=== PATIENT | male | born 1985 | race Two or more races ===

== ENCOUNTER 2017-06-01 03:26 | Emergency (ER) | payer SELFPAY ==
[2017-06-01] MEDS ORDERED: IPRATROPIUM/ALBUTEROL 0.5-2.5 MG/3 ML AMPUL NEB ONE (07:33)
[2017-06-01] MEDS ORDERED: ALBUTEROL SULFATE 0.083% NEB 2.5 MG/3 ML AMPUL NEB ONE (07:33)
[2017-06-01] MEDS ORDERED: PREDNISONE 20 MG TABLET PO ONE (07:33)
--- NOTE | 2017-06-01 07:56 | RADIOLOGY REPORT (SQ) ---
EXAM DESCRIPTION: CHEST PA/LAT COMPLETED DATE/TIME: 06/01/2017 7:40 am REASON FOR STUDY: sob COMPARISON: 06/27/2016. EXAM PARAMETERS: NUMBER OF VIEWS: two views TECHNIQUE: Digital Frontal and Lateral radiographic views of the chest acquired. RADIATION DOSE: NA LIMITATIONS: none FINDINGS: LUNGS AND PLEURA: No opacities, masses or pneumothorax. No pleural effusion. MEDIASTINUM AND HILAR STRUCTURES: No masses or contour abnormalities. HEART AND VASCULAR STRUCTURES: Heart normal size. No evidence for failure. BONES: No acute findings. HARDWARE: None in the chest. OTHER: No other significant finding. IMPRESSION: NO SIGNIFICANT RADIOGRAPHIC FINDING IN THE CHEST. TECHNICAL DOCUMENTATION: JOB ID: [id number] [employer]- All Rights Reserved
[2017-06-01] MEDS ORDERED: ALBUTEROL SULFATE HFA (90 MCG/PUFF) 8 GM MDI (1 MDI/ER DISP) IH ONE (09:27)
--- NOTE | 2017-06-01 09:27 | ER Document Report ---
ED General - General Chief Complaint: Sore Throat Stated Complaint: SORE THROAT Time Seen by Provider: 06/01/17 07:20 TRAVEL OUTSIDE OF THE [place] IN LAST 30 DAYS: No - HPI Patient complains to provider of: Sore throat difficulty in breathing Notes: Patient coming in for evaluation of shortness of breath and sore throat states ongoing for the last 24 hours. Denies any fevers chills nausea vomiting difficulty in swallowing denies any recent antibiotics patient states multiple family members are sick at home. Patient upon my evaluation is resting comfortably. - Related Data Allergies/Adverse Reactions: No Known Allergies Allergy (Unverified 06/26/16 03:06) Past Medical History - Social History Smoking Status: Unknown if Ever Smoked Family History: Reviewed & Not Pertinent Patient has suicidal ideation: No Renal/ Medical History: Denies: Hx Peritoneal Dialysis Review of Systems - Review of Systems Constitutional: No symptoms reported EENT: Throat pain Cardiovascular: No symptoms reported Respiratory: Short of breath Gastrointestinal: No symptoms reported Genitourinary: No symptoms reported Male Genitourinary: No symptoms reported Musculoskeletal: No symptoms reported Skin: No symptoms reported Hematologic/Lymphatic: No symptoms reported Neurological/Psychological: No symptoms reported -: Yes All other systems reviewed and negative Physical Exam - Vital signs Vitals: Temp Pulse Resp BP Pulse Ox 97.8 F 64 18 125/68 95 06/01/17 03:34 06/01/17 03:34 06/01/17 03:34 06/01/17 03:34 06/01/17 03:34 Interpretation: Normal - General General appearance: Appears well, Alert - HEENT Head: Normocephalic, Atraumatic Eyes: Normal Pupils: PERRL - Respiratory Respiratory status: No respiratory distress Chest status: Nontender Breath sounds: Wheezing Chest palpation: Normal - Cardiovascular Rhythm: Regular Heart sounds: Normal auscultation Murmur: No - Abdominal Inspection: Normal Distension: No distension Bowel sounds: Normal Tenderness: Nontender Organomegaly: No organomegaly - Back Back: Normal, Nontender - Extremities General upper extremity: Normal inspection, Nontender, Normal color, Normal ROM , Normal temperature General lower extremity: Normal inspection, Nontender, Normal color, Normal ROM , Normal temperature, Normal weight bearing. No: Lorie's sign - Neurological Neuro grossly intact: Yes Cognition: Normal Orientation: AAOx4 Sundance Coma Scale Eye Opening: Spontaneous Sundance Coma Scale Verbal: Oriented Smith Coma Scale Motor: Obeys Commands Sundance Coma Scale Total: 15 Speech: Normal Motor strength normal: LUE, RUE, LLE, RLE Sensory: Normal - Psychological Associated symptoms: Normal affect, Normal mood - Skin Skin Temperature: Warm Skin Moisture: Dry Skin Color: Normal Course - Re-evaluation Re-evalutation: 06/01/17 13:59 Patient's wheezing improved with administration of bronchodilators. Patient will be given steroids Z-Ethan bronchodilators for home. Patient states understanding strep throat was negative. - Vital Signs Vital signs: Temp Pulse Resp BP Pulse Ox 97.6 F 55 L 16 113/71 93 06/01/17 09:40 06/01/17 09:40 06/01/17 09:40 06/01/17 09:40 06/01/17 09:40 Discharge - Discharge Clinical Impression: Bronchitis Disposition: ADMITTED INPATIENT Instructions: Bronchitis With Bronchospasm (Wheezing) ([facility]) Additional Instructions: Take medication as prescribed. Please use the inhaler that we gave you here in the ER 2 puffs every 4 hours for the next 5 days. Return to the ER symptoms worsen. Prescriptions: Azithromycin [Zithromax 250 mg Tablet] 250 mg PO ASDIR PRN #6 tablet PRN Reason: Prednisone [Deltasone 20 mg Tablet] 3 tab PO DAILY 5 Days
[2017-06-01 10:13] VITALS: BP 113/71
== END 2017-06-01 09:54 | disposition home or self-care (01) ==
LOC: ER 03:26
DX: J40 Bronchitis, not specified as acute or chronic (principal); J02.9 Acute pharyngitis, unspecified; R06.02 Shortness of breath; R06.2 Wheezing
CPT/HCPCS: 94640 ×2; 99283; 87070; 87880; 71020; J7512; J3490; J7620

== ENCOUNTER 2018-07-16 20:59 | Inpatient (IN) | payer SELFPAY ==
[2018-07-16] MEDS ORDERED: METHYLPREDNISOLONE INJ 125 MG/2 ML SDV IV ONE (21:17)
[2018-07-16] MEDS ORDERED: IPRATROPIUM/ALBUTEROL 0.5-2.5 MG/3 ML AMPUL NEB ONE ×2 (21:17→21:31)
--- NOTE | 2018-07-16 21:33 | ER Document Report ---
ED General - General Chief Complaint: Breathing Difficulty Stated Complaint: DIFFICULTY BREATHING Time Seen by Provider: 07/16/18 21:30 Notes: The patient reports that for the past 2 days he has had progressive worsening cough of breath throughout the day today. The patient denies having an albuterol inhaler available to him at home. He denies smoking. He states that his shortness of breath is worsened by any form of exertion. He states he is feeling some improvement on nebulizers here in the emergency department. He denies ever having to be hospitalized in the past for his asthma. He does not have a general doctor. He denies any chest pain, fever or constitutional symptoms. History is otherwise somewhat limited secondary to the acuity of this patient's presentation. The history and physical exam was obtained by the provider using Upper Sorbian. A formal hospital quarter lining smoother was offered to the patient and any family at the bedside at the beginning of the encounter and was declined. TRAVEL OUTSIDE OF THE [place] IN LAST 30 DAYS: No - Related Data Allergies/Adverse Reactions: No Known Allergies Allergy (Unverified 06/26/16 03:06) Past Medical History - General Information source: Patient - Social History Smoking Status: Never Smoker Frequency of alcohol use: None Drug Abuse: None Family History: Reviewed & Not Pertinent Renal/ Medical History: Denies: Hx Peritoneal Dialysis Review of Systems - Review of Systems Notes: Constitutional: Negative for fever. HENT: Negative for sore throat. Eyes: Negative for visual changes. Cardiovascular: Negative for chest pain. Respiratory: Positive for cough and shortness of breath Gastrointestinal: Negative for abdominal pain, vomiting or diarrhea. Genitourinary: Negative for dysuria. Musculoskeletal: Negative for back pain. Skin: Negative for rash. Neurological: Negative for headaches, weakness or numbness. 10 point ROS negative except as marked above and in HPI. Physical Exam - Vital signs Vitals: Temp Pulse Resp BP Pulse Ox 97.8 F 83 26 H 112/68 94 07/16/18 21:05 07/16/18 21:05 07/16/18 21:05 07/16/18 21:05 07/16/18 21:05 Interpretation: Tachypneic Notes: PHYSICAL EXAMINATION: GENERAL: Appears in moderate to severe respiratory distress. HEAD: Atraumatic, normocephalic. EYES: Pupils equal round and reactive to light, extraocular movements intact, sclera anicteric, conjunctiva are normal. ENT: nares patent, oropharynx clear without exudates. Moderately dry mucous membranes. NECK: Normal range of motion, supple without lymphadenopathy LUNGS: Moderate to severe respiratory distress, breathing approximately 35 times per minute and initial assessment. Coarse expiratory wheezing in all lung giang. Globally diminished air movement throughout. Intercostal retractions present. HEART: Regular tachycardia without murmurs ABDOMEN: Soft, nontender, normoactive bowel sounds. No guarding, no rebound. No masses appreciated. EXTREMITIES: Normal range of motion, no pitting or edema. No cyanosis. NEUROLOGICAL: No focal neurological deficits. Moves all extremities spontaneously and on command. PSYCH: Normal mood, normal affect. SKIN: Warm, Dry, normal turgor, no rashes or lesions noted. Course - Re-evaluation Re-evalutation: 07/16/18 21:32 Patient presents in moderate to severe respiratory distress, breathing approximately 35 times per minute, intercostal retractions. He has diminished air movement in all lung giang with coarse expiratory wheezing throughout. He is also noted to be tachycardic likely secondary to his underlying respiratory distress. Clinical scenario is most consistent with a moderate to severe asthma exacerbation. Patient has been started on continuous nebulizers, IV magnesium, IV steroids have been administered. A chest x-ray and basic labs will be obtained. Patient has not yet mandate BiPAP therapy or intubation. He will require frequent and regular reassessments to ensure that he is not deteriorating from a respiratory standpoint and that he would not require positive pressure ventilation. He is currently in guarded condition 07/16/18 22:26 Patient's work of breathing has improved although he continues to be mildly tachypneic into the low 20s. He has diffuse expiratory wheezing that is ongoing in all lung giang. Will continue to give additional 10 mg of albuterol nebulizers at this point. Chest x-ray is clear. The patient does not begin to clinically improve he will likely require hospitalization. Will continue to reassess at regular intervals. 07/16/18 23:30 Patient continues to have coarse wheezing all lung giang remains moderately tachypneic despite almost 2 hours of continuous nebulizers. He has agreed to hospitalization at this point which I believe is necessary. He also remains with oxygen dependence. I discussed with Dr. Mckee who has requested a set of cardiac markers prior to admission acceptance. 07/17/18 00:43 Troponin is normal. Patient is now accepted to the hospital. - Vital Signs Vital signs: Temp Pulse Resp BP Pulse Ox 97.8 F 83 19 130/58 H 96 07/16/18 21:05 07/16/18 21:05 07/17/18 00:01 07/17/18 00:01 07/17/18 00:01 - Laboratory Result Diagrams: 07/16/18 21:32 07/16/18 21:32 Laboratory results interpreted by me: 07/16/18 07/16/18 21:32 21:32 WBC 12.6 H Eosinophils % 11.3 H Absolute Eosinophils 1.4 H BUN 22 H - Diagnostic Test Radiology reviewed: Image reviewed, Reports reviewed Radiology results interpreted by me: 07/17/18 00:43 Chest x-ray: No acute intracranial pneumothorax - EKG Interpretation by Me Additional EKG results interpreted by me: 07/17/18 00:[address] elevations or depressions. QTC 405. Rate 85. Critical Care Note - Critical Care Note Total time excluding time spent on procedures (mins): 38 Comments: Critical care time spent obtaining history from patient or surrogate, discussions with consultants, development of treatment plan with patient or surrogate, evaluation of patient's response to treatment, examination of patient , ordering and performing treatments and interventions, ordering and review of laboratory studies, re-evaluation of patient's condition, ordering and review of radiographic studies and review of old charts Discharge - Discharge Clinical Impression: Respiratory distress Asthma exacerbation Qualifiers: Asthma severity: severe Asthma persistence: unspecified Qualified Code(s): J45.901 - Unspecified asthma with (acute) exacerbation Condition: Fair Disposition: ADMITTED INPATIENT Admitting Provider: Hospitalist Unit Admitted: Telemetry
[2018-07-16] MEDS: ALBUTEROL SULFATE 0.083% NEB 2.5 MG/3 ML AMPUL NEB SCH ×2 (21:38→22:45)
[2018-07-16] MEDS: MAGNESIUM SULFATE/D5W 1 GM/100 ML RTUPB IV SCH ×2 (21:42→22:13)
--- NOTE | 2018-07-16 21:51 | RADIOLOGY REPORT (SQ) ---
XR CHEST 1 VIEW HISTORY: Shortness of breath. COMPARISON: None. FINDINGS/IMPRESSION: Normal cardiomediastinal contours. Lungs are clear. No pleural effusion or pneumothorax is seen. No acute osseous findings.
[2018-07-16 21:53] LABS: ABSOLUTE BASOPHILS # (AUTO) 0.1 10^3/uL (0.0-0.2); ABSOLUTE EOSINOPHILS # (AUTO) 1.4 10^3/uL (0.0-0.6); ABSOLUTE LYMPHOCYTES (AUTO) 2.4 10^3/uL (0.5-4.7); ABSOLUTE MONOCYTES (AUTO) 0.6 10^3/uL (0.1-1.4); BASOPHILS % (AUTO) 0.7 % (0-2); EOSINOPHILS % (AUTO) 11.3 % (0-6); HEMATOCRIT 44.5 % (37.9-51.0); HEMOGLOBIN 15.1 g/dL (13.5-17.0); LYMPHOCYTES % (AUTO) 18.9 % (13-45); MEAN CORPUSCULAR HEMOGLOBIN 30.9 pg (27.0-33.4); MEAN CORPUSCULAR VOLUME 91 fl (80-97); MONOCYTES % (AUTO) 5.1 % (3-13); PLATELET COUNT 227 10^3/uL (150-450); RED BLOOD COUNT 4.89 10^6/uL (4.35-5.55); RED CELL DISTRIBUTION WIDTH 13.2 % (11.5-14.0); TOTAL CELLS COUNTED % (AUTO) 100 %; WHITE BLOOD COUNT 12.6 10^3/uL (4.0-10.5)
--- NOTE | 2018-07-16 21:55 | EKG REPORT ---
SEVERITY:- NORMAL ECG - SINUS RHYTHM ST ELEV, PROBABLE NORMAL EARLY REPOL PATTERN : Confirmed by: Pratik Barros MD 16-Jul-2018 21:54:16
[2018-07-16 22:07] LABS: ANION GAP 14 (5-19); BLOOD UREA NITROGEN 22 mg/dL (7-20); CALCIUM 9.8 mg/dL (8.4-10.2); CARBON DIOXIDE 23 mmol/L (22-30); CHLORIDE 107 mmol/L (98-107); GLUCOSE 94 mg/dL (75-110); POTASSIUM 4.3 mmol/L (3.6-5.0); SODIUM 144.2 mmol/L (137-145)
[2018-07-16] MEDS ORDERED: RINGERS SOLUTION,LACTATED 1,000 ML IV ONE (22:25)
[2018-07-16] MEDS ORDERED: ALBUTEROL SULFATE 0.083% NEB 2.5 MG/3 ML AMPUL NEB ONE (22:25)
[2018-07-17] MEDS ORDERED: CHLORPHENIRAMINE MALEATE 4 MG TABLET PO ONE (00:41)
[2018-07-17] MEDS ORDERED: ACETAMINOPHEN 325 MG TABLET PO PRN (00:41)
[2018-07-17] MEDS ORDERED: IPRATROPIUM/ALBUTEROL 0.5-2.5 MG/3 ML AMPUL NEB PRN (00:41)
[2018-07-17] MEDS ORDERED: GUAIFENESIN SYRP 200 MG/10 ML UDC PO PRN (00:41)
[2018-07-17] MEDS ORDERED: FLUTICASONE NASAL SPRAY 50 MCG/SPRY 120 SPRAY/16 GM NASL ONE (01:00)
[2018-07-17] MEDS ORDERED: FLUTICASONE NASAL SPRAY 50 MCG/SPRY 120 SPRAY/16 GM ONE (01:33)
[2018-07-17] MEDS ORDERED: CHLORPHENIRAMINE MALEATE 4 MG TABLET ONE (01:33)
[2018-07-17] MEDS ORDERED: IPRATROPIUM/ALBUTEROL 0.5-2.5 MG/3 ML AMPUL NEB SCH (02:00)
[2018-07-17] MEDS ORDERED: CHLORPHENIRAMINE MALEATE 4 MG TABLET PO SCH (06:00)
[2018-07-17] MEDS ORDERED: METHYLPREDNISOLONE INJ 125 MG/2 ML SDV IV SCH (06:00)
[2018-07-17] MEDS: HEPARIN SOD (PORCINE) 5,000 UNIT/ML 1 ML SYRINGE SUBCUT SCH ×3 (06:03→22:21)
[2018-07-17] MEDS: LANSOPRAZOLE 30 MG TAB.RAP.DR PO SCH ×2 (06:04→17:17)
[2018-07-17] MEDS ORDERED: LEVALBUTEROL HCL NEB 1.25 MG/3 ML AMPUL NEB PRN (06:51)
--- NOTE | 2018-07-17 06:58 | PDOC H&P ---
History of Present Illness Admission Date/PCP: 07/17/18 01:32 Patient complains of: Shortness of breath History of Present Illness: ANGELO RODRÍGUEZ is a 33 year old Hungarian-speaking male with past medical history of asthma presents with exacerbation over the last 48 hours. He confirms exposure to cooking smoke and fumes his known trigger. He also complains of rhinorrhea and GERD. In the emergency room is found to have severe hypoxia with wheeze requiring continuous albuterol nebulizer and Solu- Medrol. He is referred to the hospitalist for admission. Patient admits to running out of asthma medications. Past Medical History Pulmonary Medical History: Reports: Asthma, Bronchitis Social History Information Source: Patient Lives with: Family Smoking Status: Never Smoker Frequency of Alcohol Use: None Hx Recreational Drug Use: No Drugs: None Hx Prescription Drug Abuse: No - Advance Directive Resuscitation Status: Full Code Family History Family History: Arthritis Parental Family History Reviewed: Yes Children Family History Reviewed: Yes Sibling(s) Family History Reviewed.: Yes Medication/Allergy Home Medications: Acetaminophen [Tylenol 325 mg Tablet] 650 mg PO Q4HP PRN tablet 06/28/16 Albuterol Sulfate [Proair Hfa Inhalation Aerosol 8.5 gm Mdi] 1 puff IH Q4 PRN # 1 mdi 06/28/16 Benzonatate [Tessalon Perles 100 mg Capsule] 100 mg PO Q8HP PRN #20 capsule Prednisone [Deltasone 20 mg Tablet] 40 mg PO DAILY #7 tablet 06/28/16 Sulfamethoxazole/Trimethoprim [Bactrim Ds Tablet] 1 each PO BID #14 tablet 06/28 Azithromycin [Zithromax 250 mg Tablet] 250 mg PO ASDIR PRN #6 tablet 06/01/17 Prednisone [Deltasone 20 mg Tablet] 3 tab PO DAILY 5 Days tablet 06/01/17 Allergies/Adverse Reactions: No Known Allergies Allergy (Unverified 06/26/16 03:06) Review of Systems Constitutional: ABSENT: chills, fever(s), headache(s), weight gain, weight loss Eyes: ABSENT: visual disturbances Ears: ABSENT: hearing changes Cardiovascular: ABSENT: chest pain, dyspnea on exertion, edema, orthropnea, palpitations Respiratory: ABSENT: cough, hemoptysis Gastrointestinal: ABSENT: abdominal pain, constipation, diarrhea, hematemesis, hematochezia, nausea, vomiting Genitourinary: ABSENT: dysuria, hematuria Musculoskeletal: ABSENT: joint swelling Integumentary: ABSENT: rash, wounds Neurological: ABSENT: abnormal gait, abnormal speech, confusion, dizziness, focal weakness, syncope Psychiatric: ABSENT: anxiety, depression, homidical ideation, suicidal ideation Endocrine: ABSENT: cold intolerance, heat intolerance, polydipsia, polyuria Hematologic/Lymphatic: ABSENT: easy bleeding, easy bruising Physical Exam Vital Signs: Temp Pulse Resp BP Pulse Ox 97.9 F 118 H 20 118/65 96 07/17/18 03:51 07/17/18 03:51 07/17/18 03:51 07/17/18 03:51 07/17/18 04:50 Pulse Oximeter Continuous Start: 07/17/18 00: 41 Freq: RTQ4 Status: Active Document 07/17/18 04:50 CBR (Rec: 07/17/18 04:57 [email or web address] [id number]) Pulse Oximetry Assessment Oxygen Saturation (92-100) 96 Oxygen Flow Rate (L/min) 2 Oxygen Delivery Method Nasal Cannula Fraction of Inspired Oxygen (FIO2) 28 Equipment Usage Initial Set Up Continuous Pulse Oximeter 24 Hour Charge Charge Now Continuous SpO2 Machine # [id number] Intake & Output 07/15/18 07/16/18 07/17/18 11:59 11:59 11:59 Weight 58.4 kg General appearance: PRESENT: cooperative, mild distress. ABSENT: disheveled Head exam: PRESENT: atraumatic, normocephalic Eye exam: PRESENT: conjunctiva pink, EOMI, PERRLA. ABSENT: scleral icterus Ear exam: PRESENT: normal external ear exam Mouth exam: PRESENT: moist, tongue midline Neck exam: ABSENT: carotid bruit, JVD, lymphadenopathy, thyromegaly Respiratory exam: PRESENT: accessory muscle use, prolonged expiratory phas, retraction, wheezes, other - Paroxysms of cough with deep breathing Cardiovascular exam: PRESENT: +S1, +S2, tachycardia Pulses: PRESENT: normal dorsalis pedis pul Vascular exam: PRESENT: normal capillary refill GI/Abdominal exam: PRESENT: normal bowel sounds, soft. ABSENT: distended, guarding, mass, organolmegaly, rebound, tenderness Rectal exam: PRESENT: deferred Extremities exam: PRESENT: full ROM. ABSENT: calf tenderness, clubbing, pedal edema Neurological exam: PRESENT: alert, awake, oriented to person, oriented to place , oriented to time, oriented to situation, CN II-XII grossly intact. ABSENT: motor sensory deficit Psychiatric exam: PRESENT: appropriate affect, normal mood. ABSENT: homicidal ideation, suicidal ideation Skin exam: PRESENT: dry, intact, warm. ABSENT: cyanosis, rash Results Laboratory Results: 07/17/18 05:56 Troponin I < 0.012 Impressions: Chest X-Ray 07/16/18 21:17 FINDINGS/IMPRESSION: Normal cardiomediastinal contours. Lungs are clear. No pleural effusion or pneumothorax is seen. No acute osseous findings. Assessment & Plan - Diagnosis (1) Asthma exacerbation Qualifiers: Asthma severity: severe Asthma persistence: unspecified Qualified Code(s) : J45.901 - Unspecified asthma with (acute) exacerbation Is this a current diagnosis for this admission?: Yes Plan: Secondary to exposure to known trigger, telemetry, Xopenex, chlorpheniramine, Flonase, follow-up peak flow and education (2) Tachycardia Is this a current diagnosis for this admission?: Yes Plan: Secondary to albuterol and Solu-Medrol, changed to Xopenex and prednisone (3) Sinusitis Is this a current diagnosis for this admission?: Yes Plan: Trial Levaquin, chlorpheniramine (4) GERD (gastroesophageal reflux disease) Is this a current diagnosis for this admission?: Yes Plan: Trial Pepcid (5) Respiratory distress Is this a current diagnosis for this admission?: Yes Plan: Secondary to #1, - Time Time Spent: 50 to 70 Minutes - Inpatient Certification Medical Necessity: Need Close Monitoring Due to Risk of Patient Decompensation
[2018-07-17] MEDS ORDERED: LEVOFLOXACIN 750 MG/D5W RTU 750 MG/150 ML RTUPB IV ONE (08:00)
[2018-07-17] MEDS: LEVALBUTEROL HCL NEB 1.25 MG/3 ML AMPUL NEB SCH ×3 (08:12→19:51)
[2018-07-17] MEDS: DOXYCYCLINE HYCLATE 100 MG TABLET PO SCH ×2 (09:31→22:21)
[2018-07-17] MEDS: CHLORPHENIRAMINE MALEATE 4 MG TABLET PO SCH ×2 (09:31→17:17)
--- NOTE | 2018-07-17 10:12 | Progress Note ---
Provider Note Provider Note: Patient was admitted today for asthma exacerbation. Patient is currently saturation 95% on 2 L; slightly tachycardic. Patient reports significant improvement however still wheezing. No chest pain. Patient is currently on Solu-Medrol and scheduled labs. Will decrease Solu-Medrol dose.
[2018-07-17] MEDS: FLUTICASONE NASAL SPRAY 50 MCG/SPRY 120 SPRAY/16 GM NASL SCH ×2 (10:56→22:20)
[2018-07-17] MEDS: METHYLPREDNISOLONE INJ 125 MG/2 ML SDV IV SCH ×2 (13:13→22:21)
[2018-07-17] MEDS: IPRATROPIUM BROMIDE 0.02% NEB 0.5 MG/2.5 ML AMPUL NEB SCH ×2 (14:45→19:51)
[2018-07-18] MEDS: LEVALBUTEROL HCL NEB 1.25 MG/3 ML AMPUL NEB SCH ×3 (01:52→14:14)
[2018-07-18] MEDS: IPRATROPIUM BROMIDE 0.02% NEB 0.5 MG/2.5 ML AMPUL NEB SCH ×3 (01:52→14:14)
[2018-07-18] MEDS: CHLORPHENIRAMINE MALEATE 4 MG TABLET PO SCH ×2 (02:23→09:10)
[2018-07-18] MEDS: METHYLPREDNISOLONE INJ 125 MG/2 ML SDV IV SCH (05:58)
[2018-07-18] MEDS: LANSOPRAZOLE 30 MG TAB.RAP.DR PO SCH (05:58)
[2018-07-18] MEDS: HEPARIN SOD (PORCINE) 5,000 UNIT/ML 1 ML SYRINGE SUBCUT SCH (05:58)
[2018-07-18 06:38] LABS: ANION GAP 15 (5-19); BLOOD UREA NITROGEN 20 mg/dL (7-20); CALCIUM 9.3 mg/dL (8.4-10.2); CARBON DIOXIDE 21 mmol/L (22-30); CHLORIDE 108 mmol/L (98-107); GLUCOSE 146 mg/dL (75-110); POTASSIUM 4.2 mmol/L (3.6-5.0); SODIUM 143.6 mmol/L (137-145)
[2018-07-18 06:46] LABS: HEMATOCRIT 39.2 % (37.9-51.0); HEMOGLOBIN 13.1 g/dL (13.5-17.0); MEAN CORPUSCULAR HEMOGLOBIN 30.7 pg (27.0-33.4); MEAN CORPUSCULAR HGB CONC 33.4 g/dL (32.0-36.0); MEAN CORPUSCULAR VOLUME 92 fl (80-97); PLATELET COUNT 212 10^3/uL (150-450); RED BLOOD COUNT 4.27 10^6/uL (4.35-5.55); RED CELL DISTRIBUTION WIDTH 13.5 % (11.5-14.0); WHITE BLOOD COUNT 21.2 10^3/uL (4.0-10.5)
[2018-07-18 06:52] LABS: ABSOLUTE LYMPHOCYTES# (MANUAL) 0.8 10^3/uL (0.5-4.7); ABSOLUTE MONOCYTES # (MANUAL) 0.2 10^3/uL (0.1-1.4); ABSOLUTE NEUTROPHILS# (MANUAL) 20.1 10^3/uL (1.7-8.2); BASOPHILS % (MANUAL) 0 % (0-2); EOSINOPHILS % (MANUAL) 0 % (0-6); LYMPHOCYTES % (MANUAL) 4 % (13-45); MONOCYTES % (MANUAL) 1 % (3-13); SEGMENTED NEUTROPHILS % (MAN) 95 % (42-78); TOTAL CELLS COUNTED 100
[2018-07-18 06:53] LABS: PLATELET COMMENT ADEQUATE; RBC MORPHOLOGY COMMENT NORMO-CYTIC/CHROMIC
[2018-07-18] MEDS: DOXYCYCLINE HYCLATE 100 MG TABLET PO SCH (09:10)
[2018-07-18] MEDS: FLUTICASONE NASAL SPRAY 50 MCG/SPRY 120 SPRAY/16 GM NASL SCH (09:10)
[2018-07-18] MEDS ORDERED: LEVOFLOXACIN 750 MG/D5W RTU 750 MG/150 ML RTUPB IV SCH (10:00)
--- NOTE | 2018-07-18 11:58 | PDOC DISCHARGE SUMMARY ---
General - Admit/Disc Date/PCP Admission Date/Primary Care Provider: 07/17/18 01:32 Discharge Date: 07/18/18 - Discharge Diagnosis (1) Asthma exacerbation Is this a current diagnosis for this admission?: Yes (2) Respiratory distress Is this a current diagnosis for this admission?: Yes - Additional Information Resuscitation Status: Full Code Discharge Diet: As Tolerated Discharge Activity: Activity As Tolerated Prescriptions: Doxycycline Hyclate [Vibramycin 100 mg Tablet] 100 mg PO Q12 #14 tablet Prednisone 10 mg PO DAILY #20 tab.ds.pk Home Medications: Doxycycline Hyclate [Vibramycin 100 mg Tablet] 100 mg PO Q12 #14 tablet Prednisone 10 mg PO DAILY #20 tab.ds.pk 07/18/18 History of Present Illness Patient complains of: sob/wheezing History of Present Illness: ANGELO RODRÍGUEZ is a 33 year old Israeli-speaking male with past medical history of asthma presents with exacerbation over the last 48 hours. He confirms exposure to cooking smoke and fumes his known trigger. He also complains of rhinorrhea and GERD. In the emergency room is found to have severe hypoxia with wheeze requiring continuous albuterol nebulizer and Solu- Medrol. He is referred to the hospitalist for admission. Patient admits to running out of asthma medications. Hospital Course Hospital Course: Patient was admitted to medical floor for further management of asthma exacerbation; patient was continued on Solu-Medrol as well as empiric antibiotic. Patient has been gradually tapered off oxygen. Patient is doing much better. Patient wished to go home. Will discharge patient on prednisone taper Dosepak along with p.o. doxycycline. Patient has been advised to continue inhaler at home. Physical Exam Vital Signs: Temp Pulse Resp BP Pulse Ox 97.6 F 92 20 108/64 99 07/18/18 08:02 07/18/18 08:02 07/18/18 08:02 07/18/18 08:02 07/18/18 08:00 Pulse Oximeter Continuous Start: 07/17/18 00: 41 Freq: RTQ4 Status: Active Document 07/18/18 08:00 LDA (Rec: 07/18/18 08:42 LDA [id number]) Pulse Oximetry Assessment Oxygen Saturation (92-100) 99 Oxygen Flow Rate (L/min) 2 Oxygen Delivery Method Nasal Cannula Fraction of Inspired Oxygen (FIO2) 28 Equipment Usage Equipment in Use Continuous SpO2 Machine # [id number] Intake & Output 07/17/18 07/18/18 07/19/18 06:59 06:59 06:59 Intake Total 770 503 Balance 770 503 Weight 128 lb 11.999 oz 127 lb 13.89 oz General appearance: PRESENT: no acute distress, cooperative Head exam: PRESENT: atraumatic, normocephalic Eye exam: PRESENT: EOMI, PERRLA Mouth exam: PRESENT: moist Neck exam: ABSENT: carotid bruit, JVD, lymphadenopathy, thyromegaly Respiratory exam: PRESENT: wheezes Cardiovascular exam: PRESENT: RRR. ABSENT: diastolic murmur, rubs, systolic murmur GI/Abdominal exam: PRESENT: normal bowel sounds, soft. ABSENT: distended, guarding, mass, organolmegaly, rebound, tenderness Neurological exam: PRESENT: alert, awake, oriented to person, oriented to place , oriented to time, oriented to situation, CN II-XII grossly intact. ABSENT: motor sensory deficit Skin exam: PRESENT: dry, intact, warm. ABSENT: cyanosis, rash Results Laboratory Results: 07/18/18 03:58 07/18/18 03:58 07/18/18 07/18/18 03:58 03:58 WBC 21.2 H RBC 4.27 L Hgb 13.1 L Hct 39.2 MCV 92 MCH 30.7 MCHC 33.4 RDW 13.5 Plt Count 212 Seg Neutrophils % Not Reportable Lymphocytes % Not Reportable Monocytes % Not Reportable Eosinophils % Not Reportable Basophils % Not Reportable Absolute Neutrophils Not Reportable Absolute Lymphocytes Not Reportable Absolute Monocytes Not Reportable Absolute Eosinophils Not Reportable Absolute Basophils Not Reportable Sodium 143.6 Potassium 4.2 Chloride 108 H Carbon Dioxide 21 L Anion Gap 15 BUN 20 Creatinine 0.88 Est GFR ( Amer) > 60 Est GFR (Non-Af Amer) > 60 Glucose 146 H Calcium 9.3 07/17/18 05:56 Troponin I < 0.012 Impressions: Chest X-Ray 07/16/18 21:17 FINDINGS/IMPRESSION: Normal cardiomediastinal contours. Lungs are clear. No pleural effusion or pneumothorax is seen. No acute osseous findings. Qualifiers - * PATIENT BEING DISCHARGED WITH ANY OF THE FOLLOWING DIAGNOSIS: No Plan Time Spent: Less than 30 Minutes
[2018-07-18 14:44] VITALS: BP 112/58
== END 2018-07-18 16:02 | disposition home or self-care (01) | DRG 203 ==
LOC: ER 20:59 → EH 07-17 01:32 → 5 07-17 03:49
PROVIDERS: ADMIT Internal Medicine; ATTEND Internal Medicine
DX: J45.901 Unspecified asthma with (acute) exacerbation (principal); R09.02 Hypoxemia; R00.0 Tachycardia, unspecified; J32.9 Chronic sinusitis, unspecified; K21.9 Gastro-esophageal reflux disease without esophagitis; Z79.899 Other long term (current) drug therapy
CPT/HCPCS: 36415; 71045; 80048; 84484; 85025; 93005; 93010; 94640; 94762; 96361; 96365; 96375; 99291; J1644; J1956; J2930; J3475; J3490; J7120; J7620

== ENCOUNTER 2018-11-25 14:24 | Inpatient (IN) | payer OTHER ==
[2018-11-25] MEDS ORDERED: METHYLPREDNISOLONE INJ 125 MG/2 ML SDV IV ONE (17:07)
[2018-11-25] MEDS ORDERED: IPRATROPIUM/ALBUTEROL 0.5-2.5 MG/3 ML AMPUL NEB ONE ×2 (17:07→19:51)
--- NOTE | 2018-11-25 17:09 | ER Document Report ---
ED Medical Screen (RME) - General Chief Complaint: Cough Stated Complaint: COUGH Time Seen by Provider: 11/25/18 16:46 Mode of Arrival: Ambulatory Information source: Patient Notes: Patient presents with a one-week history of cough shortness of breath and back pain. Patient denies any fever. Patient does report headache pain. Patient does have a history of asthma which has required hospitalization in the past. Patient denies any history of PE although review of additional previous admission does demonstrate question of possible small PE. Patient does not take any anticoagulants. I have greeted and performed a rapid initial assessment of this patient. A comprehensive ED assessment and evaluation of the patient, analysis of test results and completion of the medical decision making process will be conducted by additional ED providers. TRAVEL OUTSIDE OF THE [place] IN LAST 30 DAYS: No - Related Data Allergies/Adverse Reactions: No Known Allergies Allergy (Verified 11/25/18 16:46) Past Medical History - Social History Chew tobacco use (# tins/day): No Frequency of alcohol use: None Drug Abuse: None Pulmonary Medical History: Reports: Hx Asthma, Hx Bronchitis Renal/ Medical History: Denies: Hx Peritoneal Dialysis Physical Exam - Vital signs Vitals: Temp Pulse Resp BP Pulse Ox 97.5 F 64 14 109/74 96 11/25/18 14:29 11/25/18 14:29 11/25/18 14:29 11/25/18 14:29 11/25/18 14:29 - Respiratory Chest status: Pain with cough, Pain with deep breathing Breath sounds: Nonproductive cough, Wheezing - Diffuse bilateral Course - Vital Signs Vital signs: Temp Pulse Resp BP Pulse Ox 97.5 F 64 14 109/74 96 11/25/18 14:29 11/25/18 14:29 11/25/18 14:29 11/25/18 14:29 11/25/18 14:29
--- NOTE | 2018-11-25 17:43 | ER Document Report ---
ED General - General Chief Complaint: Cough Stated Complaint: COUGH Time Seen by Provider: 11/25/18 16:46 Mode of Arrival: Ambulatory Notes: Patient is a 33-year-old male who presents to the emergency department with a chief complaint of a cough. He states his cough started 6 days ago. He denies any fevers. Denies any past medical history, but he was admitted in July for a asthma exacerbation and in 2015 for a possible pulmonary emboli. TRAVEL OUTSIDE OF THE [place] IN LAST 30 DAYS: No - Related Data Allergies/Adverse Reactions: No Known Allergies Allergy (Verified 11/25/18 16:46) Past Medical History - General Information source: Patient - Social History Smoking Status: Never Smoker Chew tobacco use (# tins/day): No Frequency of alcohol use: None Drug Abuse: None Family History: Arthritis Patient has suicidal ideation: No Patient has homicidal ideation: No Pulmonary Medical History: Reports: Hx Asthma, Hx Bronchitis Renal/ Medical History: Denies: Hx Peritoneal Dialysis Review of Systems - Review of Systems Notes: REVIEW OF SYSTEMS: CONSTITUTIONAL : Denies recent illness. Denies recent unintentional weight loss. Denies fever, chills, or sweats. EENT: See HPI CARDIOVASCULAR: Denies chest pain. RESPIRATORY: See HPI GASTROINTESTINAL: Denies nausea, vomiting, and diarrhea. Denies abdominal pain. Denies constipation. GENITOURINARY: Denies difficulty urinating, burning, blood in urine, urgency or frequency. MUSCULOSKELETAL: Denies neck and back pain. Denies joint pain or swelling. SKIN: Denies rash, itchiness, or lesions HEMATOLOGIC : Denies easy bruising or bleeding. LYMPHATIC: Denies swollen, painful, enlarged glands. NEUROLOGICAL: Denies no numbness or tingling denies weakness. Denies headache. Denies altered mental status. Denies alteration in speech. PSYCHIATRIC: Denies stress, anxiety, alteration in sleep patterns, or depression. All other systems reviewed and negative. Physical Exam - Vital signs Vitals: Temp Pulse Resp BP Pulse Ox 97.5 F 64 14 109/74 96 11/25/18 14:29 11/25/18 14:29 11/25/18 14:29 11/25/18 14:29 11/25/18 14:29 - Notes Notes: PHYSICAL EXAMINATION: GENERAL: Appears well, healthy, well-nourished, no acute distress. HEAD: Normocephalic, atraumatic. EYES: PERRL, conjunctiva normal, all extraocular movements intact, sclera nonicteric ENT: Moist mucous membranes. NECK: Supple, no noticeable swelling, redness, rash. Normal range of motion. LUNGS: Inspiratory and expiratory wheezes noted throughout. Regular rate and symmetrical chest expansion. 89% on room air. CARDIOVASCULAR: S1-S2, regular rate, regular rhythm. Radial pulses 2+, normal. ABDOMEN: Normoactive bowel sounds. Soft, nontender, no guarding, no rebound tenderness, and no masses palpated. EXTREMITIES: Normal strength and range of motion, no pitting or edema. No cyan osis. NEUROLOGICAL: Moves all extremities upon command. Strength 5/5 in all extremities. PSYCH: Normal mood, normal affect. SKIN: Warm, dry. No rash, lesions, ulcerations noted. Normal skin turgor. Course - Re-evaluation Re-evalutation: 11/25/18 18:47 Patient's hematology is unremarkable. His chemistries are normal. His d-dimer is 0.27, therefore there is no indication for a CT scan at this time. He is getting continuous nebulizer treatments and his lung sounds are still wheezy. He will continue nebulizer treatments. His chest x-ray is negative, therefore there is no pneumonia at this time. His strep test that was performed in triage is negative. 11/25/18 20:23 Patient's lungs are still wheezy and his oxygen saturation is 89% on room air. He is placed on 2 L nasal cannula and his oxygen saturation increased to 94%. 11/25/18 20:[address] Hodgson, the hospitalist. He will admit the patient to the hospitalist service to the medical floor. - Vital Signs Vital signs: Temp Pulse Resp BP Pulse Ox 97.5 F 64 14 109/74 96 11/25/18 14:29 11/25/18 14:29 11/25/18 14:29 11/25/18 14:29 11/25/18 20:44 - Laboratory Result Diagrams: 11/25/18 18:02 11/25/18 18:02 Laboratory results interpreted by me: 11/25/18 18:02 Eosinophils % 12.5 H Absolute Eosinophils 1.2 H - EKG Interpretation by Me Additional EKG results interpreted by me: 11/25/18 17:42 Sinus rhythm. Heart rate 63. SD 160; QRS 80; QT 400 and; QTC 410. Discharge - Discharge Clinical Impression: Cough Asthma exacerbation Qualifiers: Asthma severity: severe Asthma persistence: unspecified Qualified Code(s): J45.901 - Unspecified asthma with (acute) exacerbation Condition: Fair Disposition: ADMITTED INPATIENT Admitting Provider: Hospitalist Unit Admitted: Medical Floor
--- NOTE | 2018-11-25 17:49 | RADIOLOGY REPORT (SQ) ---
EXAM DESCRIPTION: CHEST 2 VIEWS COMPLETED DATE/TIME: 11/25/2018 5:40 pm REASON FOR STUDY: cough, back pain COMPARISON: 06/01/2017 EXAM PARAMETERS: NUMBER OF VIEWS: two views TECHNIQUE: Digital Frontal and Lateral radiographic views of the chest acquired. RADIATION DOSE: NA LIMITATIONS: none FINDINGS: LUNGS AND PLEURA: No opacities, masses or pneumothorax. No pleural effusion. MEDIASTINUM AND HILAR STRUCTURES: No masses or contour abnormalities. HEART AND VASCULAR STRUCTURES: Heart normal size. No evidence for failure. BONES: No acute findings. HARDWARE: None in the chest. OTHER: No other significant finding. IMPRESSION: NO ACUTE RADIOGRAPHIC FINDING IN THE CHEST. TECHNICAL DOCUMENTATION: JOB ID: [id number] [employer]- All Rights Reserved Reading location - IP/workstation name: [email or web address]
[2018-11-25] MEDS: ALBUTEROL SULFATE 0.083% NEB 2.5 MG/3 ML AMPUL NEB SCH ×2 (18:00→18:34)
[2018-11-25] MEDS ORDERED: ONDANSETRON 4 MG TAB.RAPDIS PO ONE (18:04)
[2018-11-25 18:21] LABS: ABSOLUTE BASOPHILS # (AUTO) 0.1 10^3/uL (0.0-0.2); ABSOLUTE EOSINOPHILS # (AUTO) 1.2 10^3/uL (0.0-0.6); ABSOLUTE MONOCYTES (AUTO) 0.5 10^3/uL (0.1-1.4); ABSOLUTE NEUT (AUTO) 6.1 10^3/uL (1.7-8.2); BASOPHILS % (AUTO) 0.7 % (0-2); EOSINOPHILS % (AUTO) 12.5 % (0-6); HEMATOCRIT 45.6 % (37.9-51.0); HEMOGLOBIN 15.4 g/dL (13.5-17.0); MEAN CORPUSCULAR HEMOGLOBIN 31.1 pg (27.0-33.4); MEAN CORPUSCULAR HGB CONC 33.8 g/dL (32.0-36.0); MEAN CORPUSCULAR VOLUME 92 fl (80-97); PLATELET COUNT 229 10^3/uL (150-450); RED BLOOD COUNT 4.96 10^6/uL (4.35-5.55); SEGMENTED NEUTROPHILS % (AUTO) 61.8 % (42-78); TOTAL CELLS COUNTED % (AUTO) 100 %; WHITE BLOOD COUNT 9.8 10^3/uL (4.0-10.5)
[2018-11-25 18:43] LABS: ALANINE AMINOTRANSFERASE 37 U/L (21-72); ALKALINE PHOSPHATASE 53 U/L (38-126); ANION GAP 11 (5-19); ASPARTATE AMINO TRANSFERASE 57 U/L (17-59); BILIRUBIN,DIRECT 0.4 mg/dL (0.0-0.4); BILIRUBIN,TOTAL 1.3 mg/dL (0.2-1.3); BLOOD UREA NITROGEN 18 mg/dL (7-20); CALCIUM 9.7 mg/dL (8.4-10.2); CARBON DIOXIDE 25 mmol/L (22-30); CHLORIDE 106 mmol/L (98-107); GLUCOSE 80 mg/dL (75-110); POTASSIUM 4.7 mmol/L (3.6-5.0); SODIUM 141.9 mmol/L (137-145); TOTAL PROTEIN 7.7 g/dL (6.3-8.2)
[2018-11-25] MEDS: MAGNESIUM SULFATE/D5W 1 GM/100 ML RTUPB IV SCH ×2 (20:00→20:41)
[2018-11-25] MEDS ORDERED: ONDANSETRON HCL INJ/PF 4 MG/2 ML SDV IV PRN (20:33)
[2018-11-25] MEDS ORDERED: ONDANSETRON 4 MG TAB.RAPDIS PO PRN (20:33)
[2018-11-25] MEDS ORDERED: MAG HYDROX/AL HYDROX/SIMETH SUSP 30 ML UDCUP PO PRN (20:33)
[2018-11-25] MEDS ORDERED: MAGNESIUM HYDROXIDE SUSP 30 ML UDCUP PO PRN (20:33)
[2018-11-25] MEDS ORDERED: ACETAMINOPHEN 325 MG TABLET PO PRN (20:39)
[2018-11-25] MEDS ORDERED: ACETAMINOPHEN 650 MG SUPP.RECT PR PRN (20:39)
[2018-11-25] MEDS ORDERED: NALBUPHINE HCL INJ 10 MG/1 ML AMPULE IV PRN ×2 (21:12→22:00)
[2018-11-25] MEDS: GUAIFENESIN/D-METHORPHAN (200-20 MG) SYRUP 10 ML PO SCH ×2 (21:35→21:36)
[2018-11-25] MEDS: BUDESONIDE NEB 0.5 MG/2 ML AMPUL NEB SCH (22:09)
[2018-11-25] MEDS: ENOXAPARIN SODIUM INJ 40 MG/0.4 ML DISP.SYRIN SUBCUT SCH (22:10)
[2018-11-25] MEDS: FAMOTIDINE 20 MG TABLET PO SCH (22:10)
[2018-11-25] MEDS: IBUPROFEN 800 MG TABLET PO SCH (22:10)
--- NOTE | 2018-11-25 23:08 | PDOC H&P ---
History of Present Illness Admission Date/PCP: 11/25/2018 Patient complains of: Dyspnea History of Present Illness: ANGELO URENA is a 33 year old male who presented to the emergency room with a one-week history of progressively worsening dyspnea with wheezing accompanied by a nonproductive cough, generalized backache and a generalized headache. Patient indicates that his dyspnea became severe on the day of admission thus causing him to present to the emergency room. He admits similar symptoms on at least one prior occasion resulting in hospitalization and he has not identified any aggravating or ameliorating factors for his dyspnea. In the emergency room he was found to have significant wheezing on exam and hypoxia by O2 sat monitor. A d-dimer was noted to be negative. His overall condition improved with multiple nebulizer treatments and 1 dose of Solu-Medrol IV. He was found to remain hypoxic with an O2 sat in the 80s without oxygen support. He was given O2 via nasal cannula at 2 L/min and this improved his oxygen saturation to greater than 93%. Because of his requirement for oxygen to maintain an adequate O2 sat he is admitted to the hospital for further tr eatment. Past Medical History Cardiac Medical History: Reports: Pulmonary Embolism - History of a "possible small pulmonary embolism" found in prior records Denies: Coronary Artery Disease, Hypertension Pulmonary Medical History: Reports: Asthma, Bronchitis Denies: Intubation, Tuberculosis EENT Medical History: Reports: None Neurological Medical History: Denies: Hemorrhagic CVA, Ischemic CVA, Seizures Endocrine Medical History: Denies: Diabetes Mellitus Type 1, Diabetes Mellitus Type 2, Obesity Malignancy Medical History: Reports: None GI Medical History: Reports: Gastroesophageal Reflux Disease Denies: Cirrhosis, Hepatitis, Peptic Ulcer Disease Musculoskeltal Medical History: Denies: Arthritis, Gout Skin Medical History: Denies: Eczema, Psoriasis Psychiatric Medical History: Denies: Alcohol Dependency, Substance Abuse, Tobacco Dependency Traumatic Medical History: Reports: None Hematology: Denies: Anemia, Bleeding Tendencies Infectious Medical History: Reports: None Past Surgical History Past Surgical History: Reports: None Social History Information Source: Patient Lives with: Family Smoking Status: Never Smoker Frequency of Alcohol Use: None Hx Recreational Drug Use: No Drugs: None Hx Prescription Drug Abuse: No - Advance Directive Resuscitation Status: Full Code Surrogate healthcare decision maker:: None acknowledged Family History Family History: Arthritis Parental Family History Reviewed: Yes Children Family History Reviewed: No Sibling(s) Family History Reviewed.: Yes Medication/Allergy Home Medications: No Home Medications 11/25/18 Allergies/Adverse Reactions: No Known Allergies Allergy (Verified 11/25/18 16:46) Review of Systems Constitutional: PRESENT: as per HPI, headache(s). ABSENT: chills, fever(s) Eyes: ABSENT: visual disturbances, other - Ocular pain Ears: ABSENT: hearing changes, other - Ear pain Nose, Mouth, and Throat: ABSENT: mouth pain, sore throat Cardiovascular: PRESENT: dyspnea on exertion. ABSENT: chest pain, orthropnea, palpitations Respiratory: PRESENT: cough - Nonproductive, dyspnea. ABSENT: hemoptysis, sputum Gastrointestinal: ABSENT: abdominal pain, constipation, diarrhea, nausea, vomiting Genitourinary: ABSENT: dysuria, hematuria Musculoskeletal: PRESENT: as per HPI, back pain. ABSENT: joint swelling Integumentary: ABSENT: pruritus, rash Neurological: ABSENT: confusion, convulsions, memory loss Psychiatric: ABSENT: anxiety, depression Endocrine: ABSENT: cold intolerance, heat intolerance Hematologic/Lymphatic: ABSENT: easy bleeding, easy bruising Physical Exam Vital Signs: Temp Pulse Resp BP Pulse Ox 97.5 F 64 14 109/74 96 11/25/18 14:29 11/25/18 14:29 11/25/18 14:29 11/25/18 14:29 11/25/18 14:29 Intake & Output 11/23/18 11/24/18 11/25/18 23:59 23:59 23:59 Intake Total 100 Balance 100 Weight 61.4 kg General appearance: PRESENT: cooperative, mild distress - Mild respiratory distress with wheezing, well-developed, well-nourished Head exam: PRESENT: atraumatic, normocephalic Eye exam: PRESENT: conjunctiva pink, EOMI. ABSENT: scleral icterus Ear exam: PRESENT: normal external ear exam. ABSENT: bleeding, drainage Mouth exam: PRESENT: dry mucosa, neck supple Neck exam: ABSENT: JVD, thyromegaly, tracheal deviation Respiratory exam: PRESENT: prolonged expiratory phas, symmetrical, wheezes. ABSENT: accessory muscle use, retraction Cardiovascular exam: PRESENT: RRR. ABSENT: clicks, gallop, rubs Pulses: PRESENT: normal radial pulses, normal dorsalis pedis pul Vascular exam: PRESENT: normal capillary refill. ABSENT: pallor GI/Abdominal exam: PRESENT: normal bowel sounds, soft Rectal exam: PRESENT: deferred Extremities exam: ABSENT: joint swelling, pedal edema, tenderness Musculoskeletal exam: PRESENT: ambulatory, full ROM, normal inspection Neurological exam: PRESENT: alert, oriented to person, oriented to place, oriented to time, oriented to situation, CN II-XII grossly intact. ABSENT: motor sensory deficit Psychiatric exam: PRESENT: appropriate affect, normal mood Skin exam: PRESENT: dry, intact, warm. ABSENT: jaundice, rash, urticaria Results Laboratory Results: 11/25/18 18:02 11/25/18 18:02 11/25/18 11/25/18 18:02 18:02 WBC 9.8 RBC 4.96 Hgb 15.4 Hct 45.6 MCV 92 MCH 31.1 MCHC 33.8 RDW 13.0 Plt Count 229 Seg Neutrophils % 61.8 Lymphocytes % 20.0 Monocytes % 5.0 Eosinophils % 12.5 H Basophils % 0.7 Absolute Neutrophils 6.1 Absolute Lymphocytes 2.0 Absolute Monocytes 0.5 Absolute Eosinophils 1.2 H Absolute Basophils 0.1 Sodium 141.9 Potassium 4.7 Chloride 106 Carbon Dioxide 25 Anion Gap 11 BUN 18 Creatinine 0.72 Est GFR ( Amer) > 60 Est GFR (Non-Af Amer) > 60 Glucose 80 Calcium 9.7 Magnesium 2.0 Total Bilirubin 1.3 AST 57 ALT 37 Alkaline Phosphatase 53 Total Protein 7.7 Albumin 5.0 11/25/18 18:02 Troponin I < 0.012 Impressions: Chest X-Ray 11/25/18 17:07 IMPRESSION: NO ACUTE RADIOGRAPHIC FINDING IN THE CHEST. Assessment & Plan - Diagnosis (1) Acute respiratory failure with hypoxia Is this a current diagnosis for this admission?: Yes Plan: Patient will be continued on oxygen support as long as required to maintain a normal level of oxygen saturation. He is currently using O2 via nasal cannula at 2 L/min. (2) Acute exacerbation of extrinsic asthma Is this a current diagnosis for this admission?: Yes Plan: Patient be treated with an aggressive pulmonary toilet utilizing Xopenex, Atrovent, Pulmicort, Mucomyst and albuterol. He will receive IV steroids in the form of Solu-Medrol 40 mg every 6 hours. He will be maintained on O2 support with oxygen via nasal cannula to maintain his oxygen saturation at greater than 93%. (3) Cough headache Is this a current diagnosis for this admission?: Yes Plan: Patient has a generalized headache secondary to his persistent coughing. His cough will be treated utilizing Mucomyst and guaifenesin with dextromethorphan. His headache will be treated with Nubain 10 mg IV every 3 hours as needed. (4) Backache Qualifiers: Back pain location: thoracic back pain Chronicity: acute Back pain laterality: bilateral Qualified Code(s): M54.6 - Pain in thoracic spine Is this a current diagnosis for this admission?: Yes Plan: Patient's backache is most likely secondary to his respiratory problems of cough and dyspnea. His back pain is generalized thoracic pain bilaterally and it will be treated with nonsteroidal anti-inflammatory drugs utilizing ibuprofen 800 mg p.o. 3 times daily as well as new being 10 mg IV every 3 hours as needed. - Time Time Spent: 30 to 50 Minutes Critical Time spent with patient: Less than 15 minutes Medications reviewed and adjusted accordingly: Yes Anticipated discharge: Home Within: within 72 hours - Inpatient Certification Based on my medical assessment, after consideration of the patient's comorbidities, presenting symptoms, or acuity I expect that the services needed warrant INPATIENT care.: Yes I certify that my determination is in accordance with my understanding of Medicare's requirements for reasonable and necessary INPATIENT services [42 CFR 412.3e].: Yes Medical Necessity: Need Close Monitoring Due to Risk of Patient Decompensation, Need for Nebulizer Therapy and Monitoring of Response, Need for Pain Control, Risk of Complication if Not Cared For in Hospital
[2018-11-25] MEDS: ACETYLCYSTEINE 20% SOLN 800 MG/4 ML VIAL.NEB NEB SCH (23:30)
[2018-11-26] MEDS: GUAIFENESIN/D-METHORPHAN (200-20 MG) SYRUP 10 ML PO SCH ×5 (00:50→22:59)
[2018-11-26] MEDS: NORMAL SALINE 1000 ML 1,000 ML IV PRN ×2 (01:04→05:11)
[2018-11-26] MEDS: IPRATROPIUM BROMIDE 0.02% NEB 0.5 MG/2.5 ML AMPUL NEB SCH ×4 (02:41→23:40)
[2018-11-26] MEDS: LEVALBUTEROL HCL NEB 1.25 MG/3 ML AMPUL NEB SCH ×4 (02:41→23:40)
[2018-11-26] MEDS: IBUPROFEN 800 MG TABLET PO SCH ×3 (06:16→22:40)
[2018-11-26] MEDS: METHYLPREDNISOLONE INJ 40 MG/1 ML SDV IV SCH ×3 (06:18→17:47)
[2018-11-26 07:36] LABS: ABSOLUTE MONOCYTES (AUTO) 0.1 10^3/uL (0.1-1.4); ABSOLUTE NEUT (AUTO) 6.3 10^3/uL (1.7-8.2); BASOPHILS % (AUTO) 0.3 % (0-2); HEMATOCRIT 40.7 % (37.9-51.0); HEMOGLOBIN 14.1 g/dL (13.5-17.0); LYMPHOCYTES % (AUTO) 13.3 % (13-45); MEAN CORPUSCULAR HEMOGLOBIN 31.3 pg (27.0-33.4); MEAN CORPUSCULAR HGB CONC 34.6 g/dL (32.0-36.0); MEAN CORPUSCULAR VOLUME 91 fl (80-97); MONOCYTES % (AUTO) 0.8 % (3-13); PLATELET COUNT 227 10^3/uL (150-450); RED CELL DISTRIBUTION WIDTH 12.7 % (11.5-14.0); SEGMENTED NEUTROPHILS % (AUTO) 85.6 % (42-78); TOTAL CELLS COUNTED % (AUTO) 100 %; WHITE BLOOD COUNT 7.4 10^3/uL (4.0-10.5)
[2018-11-26 07:56] LABS: ANION GAP 9 (5-19); BLOOD UREA NITROGEN 14 mg/dL (7-20); CALCIUM 9.3 mg/dL (8.4-10.2); CARBON DIOXIDE 22 mmol/L (22-30); CHLORIDE 109 mmol/L (98-107); GLUCOSE 135 mg/dL (75-110); POTASSIUM 4.5 mmol/L (3.6-5.0); SODIUM 140.3 mmol/L (137-145)
[2018-11-26] MEDS: BUDESONIDE NEB 0.5 MG/2 ML AMPUL NEB SCH ×2 (08:49→19:33)
[2018-11-26] MEDS: ACETYLCYSTEINE 20% SOLN 800 MG/4 ML VIAL.NEB NEB SCH ×2 (08:49→19:33)
--- NOTE | 2018-11-26 09:20 | EKG REPORT ---
SEVERITY:- NORMAL ECG - SINUS RHYTHM : Confirmed by: Pratik Barros MD 26-Nov-2018 09:20:00
[2018-11-26] MEDS: DOCUSATE SODIUM 100 MG CAPSULE PO SCH ×2 (09:52→17:47)
[2018-11-26] MEDS: FAMOTIDINE 20 MG TABLET PO SCH ×2 (09:52→22:41)
[2018-11-26] MEDS: ENOXAPARIN SODIUM INJ 40 MG/0.4 ML DISP.SYRIN SUBCUT SCH (09:52)
[2018-11-26] MEDS: ALBUTEROL SULFATE 0.083% NEB 2.5 MG/3 ML AMPUL NEB PRN (19:33)
--- NOTE | 2018-11-27 04:12 | PROGRESS NOTE E ---
Progress Note NAME: ANGELO URENA : 1985 AGE: 33Y DATE: 11/26/2018 ROOM: 208 SUBJECTIVE: The patient is a 33-year-old male who has a past medical history of asthma, history of GI bleed. The patient admitted with shortness of breath, asthma exacerbation. He is feeling better, but is still requiring oxygen, has wheezing and coughing. When he was admitted, saturation was in 80s. OBJECTIVE: GENERAL: The patient lying in bed comfortable, not in distress. VITAL SIGNS: Blood pressure is 103/55, temperature 98.1, heart rate is 83, saturation is 97% on 2 L. HEENT: Head: Normocephalic, atraumatic. Pupils round, reactive to light and accommodation bilaterally. Extraocular movements intact. Ears: Tympanic membranes intact bilaterally. No discharge from the ears. No discharge from the nose. NECK: Supple. No increased JVD. No thyromegaly. No lymphadenopathy. CARDIOVASCULAR: Normal S1, S2. Regular rate and rhythm. No murmur. No gallop. RESPIRATORY: Bilateral wheezing, crackles. ABDOMEN: Soft, nontender. MUSCULOSKELETAL: No edema. NEUROLOGIC: Awake, alert. SKIN: No rash. LABORATORY: White blood count 7.4, hemoglobin 14. Sodium 140, potassium 4.5, creatinine 0.7. ASSESSMENT: 1. ACUTE HYPOXIC RESPIRATORY FAILURE SECONDARY TO ASTHMA EXACERBATION. 2. ASTHMA EXACERBATION. 3. COUGH. 4. HEADACHE. 5. BACK PAIN. PLAN: 1. Continue antibiotics. 2. Continue with methylprednisolone. 3. Continue inhaler. DISPOSITION: Home in 1 or 2 days. DICTATING PHYSICIAN: ROCÍO CAO M.D. [id number] PHY#: [id number] ID: [id number] JOB#: [id number] ACCT: [id number] cc: > MTDD
[2018-11-27] MEDS: GUAIFENESIN/D-METHORPHAN (200-20 MG) SYRUP 10 ML PO SCH ×4 (05:21→23:05)
[2018-11-27] MEDS: IBUPROFEN 800 MG TABLET PO SCH ×3 (05:21→21:09)
[2018-11-27 06:40] LABS: ABSOLUTE LYMPHOCYTES (AUTO) 1.4 10^3/uL (0.5-4.7); ABSOLUTE MONOCYTES (AUTO) 0.9 10^3/uL (0.1-1.4); ABSOLUTE NEUT (AUTO) 14.5 10^3/uL (1.7-8.2); BASOPHILS % (AUTO) 0.1 % (0-2); EOSINOPHILS % (AUTO) 0.1 % (0-6); HEMATOCRIT 38.7 % (37.9-51.0); LYMPHOCYTES % (AUTO) 8.2 % (13-45); MEAN CORPUSCULAR HEMOGLOBIN 31.1 pg (27.0-33.4); MEAN CORPUSCULAR HGB CONC 33.8 g/dL (32.0-36.0); MEAN CORPUSCULAR VOLUME 92 fl (80-97); MONOCYTES % (AUTO) 5.5 % (3-13); PLATELET COUNT 222 10^3/uL (150-450); RED CELL DISTRIBUTION WIDTH 13.2 % (11.5-14.0); SEGMENTED NEUTROPHILS % (AUTO) 86.1 % (42-78); TOTAL CELLS COUNTED % (AUTO) 100 %
[2018-11-27 06:48] LABS: WHITE BLOOD COUNT 16.8 10^3/uL (4.0-10.5)
[2018-11-27 07:13] LABS: ALBUMIN 3.7 g/dL (3.5-5.0); ANION GAP 7 (5-19); BLOOD UREA NITROGEN 20 mg/dL (7-20); CALCIUM 9.1 mg/dL (8.4-10.2); CARBON DIOXIDE 23 mmol/L (22-30); CHLORIDE 111 mmol/L (98-107); GLUCOSE 136 mg/dL (75-110); PHOSPHORUS 3.8 mg/dL (2.5-4.5); POTASSIUM 4.4 mmol/L (3.6-5.0); SODIUM 141.2 mmol/L (137-145)
[2018-11-27] MEDS: BUDESONIDE NEB 0.5 MG/2 ML AMPUL NEB SCH ×2 (09:08→20:34)
[2018-11-27] MEDS: ACETYLCYSTEINE 20% SOLN 800 MG/4 ML VIAL.NEB NEB SCH ×2 (09:08→20:34)
[2018-11-27] MEDS: IPRATROPIUM BROMIDE 0.02% NEB 0.5 MG/2.5 ML AMPUL NEB SCH ×3 (09:08→23:59)
[2018-11-27] MEDS: LEVALBUTEROL HCL NEB 1.25 MG/3 ML AMPUL NEB SCH ×3 (09:08→23:59)
[2018-11-27] MEDS: DOCUSATE SODIUM 100 MG CAPSULE PO SCH ×2 (10:53→18:34)
[2018-11-27] MEDS: ENOXAPARIN SODIUM INJ 40 MG/0.4 ML DISP.SYRIN SUBCUT SCH (10:53)
[2018-11-27] MEDS: FAMOTIDINE 20 MG TABLET PO SCH ×2 (10:53→21:09)
[2018-11-27] MEDS: METHYLPREDNISOLONE INJ 40 MG/1 ML SDV IV SCH ×2 (15:03→21:10)
--- NOTE | 2018-11-27 15:42 | PROGRESS NOTE E ---
Progress Note NAME: ANGELO URENA : 1985 AGE: 33Y DATE: 11/27/2018 ROOM: 208 SUBJECTIVE: The patient is at present a 33-year-old male who had a past medical history of asthma, history of GI bleeding. The patient admitted to shortness of breath and asthma exacerbation. He is improving gradually; however, he is still wheezing and has a cough. OBJECTIVE: GENERAL: Patient lying in bed, comfortable, not in distress. VITAL SIGNS: Blood pressure is 102/52, heart rate 55, temperature 97.9, respirations 18, saturation 95% on room air. HEENT: Normocephalic, atraumatic. Pupils equal, round, reactive to light and accommodation bilaterally. Extraocular movements intact. Ears: Tympanic membranes intact bilaterally. No discharge from the ears. No discharge from the nose. NECK: Supple. No JVD. No thyromegaly. No lymphadenopathy. CARDIOVASCULAR: Normal S1, S2. Regular rate and rhythm. No murmur, no gallop. RESPIRATORY: Lungs: Bilateral wheezing, crackles. ABDOMEN: Soft, nontender. MUSCULOSKELETAL: No edema. NEUROLOGIC: Awake, alert. SKIN: No rash. LABORATORY DATA: White blood count 16.8, hemoglobin 13. Sodium 141, potassium 4.4, creatinine 0.6. ASSESSMENT: 1. ACUTE HYPOXIC RESPIRATORY FAILURE, SECONDARY TO ASTHMA EXACERBATION. 2. ASTHMA EXACERBATION. 3. COUGH. 4. HEADACHE. 5. BACK PAIN. PLAN: 1. Will start him on Levaquin 750 mg p.o. daily. 2. Continue nebulizer. 3. Continue oxygen. 4. Continue Solu-Medrol. DISPOSITION: Probably discharge him home tomorrow morning if his condition is improved. DICTATING PHYSICIAN: ROCÍO CAO M.D. [id number] PHY#: [id number] ID: [id number] JOB#: [id number] ACCT: [id number] cc: >
[2018-11-27] MEDS: ALBUTEROL SULFATE 0.083% NEB 2.5 MG/3 ML AMPUL NEB PRN (20:34)
[2018-11-28] MEDS: GUAIFENESIN/D-METHORPHAN (200-20 MG) SYRUP 10 ML PO SCH (05:21)
[2018-11-28] MEDS: METHYLPREDNISOLONE INJ 40 MG/1 ML SDV IV SCH (05:22)
[2018-11-28] MEDS: IBUPROFEN 800 MG TABLET PO SCH (05:22)
[2018-11-28 06:28] LABS: ABSOLUTE LYMPHOCYTES (AUTO) 1.2 10^3/uL (0.5-4.7); ABSOLUTE MONOCYTES (AUTO) 0.3 10^3/uL (0.1-1.4); ABSOLUTE NEUT (AUTO) 8.2 10^3/uL (1.7-8.2); BASOPHILS % (AUTO) 0.5 % (0-2); HEMATOCRIT 40.1 % (37.9-51.0); HEMOGLOBIN 13.7 g/dL (13.5-17.0); LYMPHOCYTES % (AUTO) 12.2 % (13-45); MEAN CORPUSCULAR HEMOGLOBIN 31.4 pg (27.0-33.4); MEAN CORPUSCULAR HGB CONC 34.2 g/dL (32.0-36.0); MEAN CORPUSCULAR VOLUME 92 fl (80-97); MONOCYTES % (AUTO) 3.3 % (3-13); PLATELET COUNT 148 10^3/uL (150-450); RED BLOOD COUNT 4.38 10^6/uL (4.35-5.55); RED CELL DISTRIBUTION WIDTH 13.3 % (11.5-14.0); TOTAL CELLS COUNTED % (AUTO) 100 %; WHITE BLOOD COUNT 9.8 10^3/uL (4.0-10.5)
[2018-11-28 06:40] LABS: ANION GAP 10 (5-19); BLOOD UREA NITROGEN 16 mg/dL (7-20); CARBON DIOXIDE 24 mmol/L (22-30); CHLORIDE 107 mmol/L (98-107); GLUCOSE 129 mg/dL (75-110); POTASSIUM 4.2 mmol/L (3.6-5.0); SODIUM 140.5 mmol/L (137-145)
[2018-11-28] MEDS: BUDESONIDE NEB 0.5 MG/2 ML AMPUL NEB SCH (08:12)
[2018-11-28] MEDS: ACETYLCYSTEINE 20% SOLN 800 MG/4 ML VIAL.NEB NEB SCH (08:12)
[2018-11-28] MEDS: LEVALBUTEROL HCL NEB 1.25 MG/3 ML AMPUL NEB SCH (08:12)
[2018-11-28] MEDS: IPRATROPIUM BROMIDE 0.02% NEB 0.5 MG/2.5 ML AMPUL NEB SCH (08:12)
--- NOTE | 2018-11-28 08:41 | PDOC DISCHARGE SUMMARY ---
General - Admit/Disc Date/PCP Admission Date/Primary Care Provider: 11/25/18 20:36 Discharge Date: 11/28/18 - Discharge Diagnosis (1) Acute exacerbation of extrinsic asthma Is this a current diagnosis for this admission?: Yes Summary: 11/28/2018 this 33-year-old male with history of asthma admitted for shortness of breath and asthma exacerbation Xopenex nebulizations ipratropium nebulizations and IV Solu-Medrol no complications during the hospital stay. Pulse ox is 96% on room air today. On examination chest bilateral entry was good no wheezing at all. Patient agreed to go home today. I gave him a prescription for albuterol inhaler and cough medication strongly advised him to follow-up with primary care physician in 3-5 days. (2) Acute respiratory failure with hypoxia Is this a current diagnosis for this admission?: Yes Summary: 11/28/2018 at the time of admission patient was hypoxic and I was placed on oxygen 2 L nasal cannula today pulse ox is 96% on room air acute respiratory failure with hypoxia is resolved. (3) Cough headache Is this a current diagnosis for this admission?: Yes Summary: 11/28/2018 patient was admitted with generalized headache secondary to persistent coughing he got Mucomyst and guaifenesin with dextromethorphan ,he is going to go home on guaifenesin cough medication for a few days. Patient headache is resolved. - Additional Information Resuscitation Status: Full Code Discharge Diet: As Tolerated Discharge Activity: Activity As Tolerated Prescriptions: Albuterol Sulfate [Proair Respiclick] 90 mcg IH Q4HP PRN #3 inhaler PRN Reason: Guaifenesin/D-Methorphan Hb [Robitussin-Dm Syrup 10 ml Udcup] 10 ml PO Q6 #100 syrup Home Medications: Albuterol Sulfate [Proair Respiclick] 90 mcg IH Q4HP PRN #3 inhaler 11/28/18 Guaifenesin/D-Methorphan Hb [Robitussin-Dm Syrup 10 ml Udcup] 10 ml PO Q6 #100 syrup 11/28/18 History of Present Illness History of Present Illness: ANGELO URENA is a 33 year old male who presented to the emergency room with a one-week history of progressively worsening dyspnea with wheezing accompanied by a nonproductive cough, generalized backache and a generalized headache. Patient indicates that his dyspnea became severe on the day of admission thus causing him to present to the emergency room. He admits similar symptoms on at least one prior occasion resulting in hospitalization and he has not identified any aggravating or ameliorating factors for his dyspnea. In the emergency room he was found to have significant wheezing on exam and hypoxia by O2 sat monitor. A d-dimer was noted to be negative. His overall condition improved with multiple nebulizer treatments and 1 dose of Solu-Medrol IV. He was found to remain hypoxic with an O2 sat in the 80s without oxygen support. He was given O2 via nasal cannula at 2 L/min and this improved his oxygen saturation to greater than 93%. Because of his requirement for oxygen to maintain an adequate O2 sat he is admitted to the hospital for further treatment. Hospital Course Hospital Course: 11/28/2018 patient was admitted with complaints of shortness of breath and cou ghing on 11/26/2018 initially was hypoxic he was placed on scheduled nebulizations cough medication and IV Solu-Medrol symptoms are Completely resolved. Pulse ox is 96% room air today. Patient is asymptomatic. Chest was clear on examination. Is going to go home today. Cultures are negative. Physical Exam Vital Signs: Temp Pulse Resp BP Pulse Ox 98.1 F 70 15 101/47 L 96 11/28/18 04:31 11/28/18 04:31 11/28/18 04:31 11/28/18 04:31 11/28/18 04:31 Intake & Output 11/27/18 11/28/18 11/29/18 06:59 06:59 06:59 Intake Total 1540 600 Balance 1540 600 Weight 63.1 kg 62.4 kg General appearance: PRESENT: no acute distress Head exam: PRESENT: atraumatic Eye exam: PRESENT: PERRLA Mouth exam: PRESENT: moist Neck exam: ABSENT: carotid bruit, JVD, lymphadenopathy, thyromegaly Respiratory exam: PRESENT: clear to auscultation yanely. ABSENT: rales, rhonchi, wheezes Cardiovascular exam: PRESENT: RRR. ABSENT: diastolic murmur, rubs, systolic murmur Extremities exam: PRESENT: full ROM. ABSENT: calf tenderness, clubbing, pedal edema Neurological exam: PRESENT: alert, awake, oriented to person, oriented to place, oriented to time, oriented to situation, CN II-XII grossly intact. ABSENT: motor sensory deficit Psychiatric exam: PRESENT: appropriate affect, normal mood. ABSENT: homicidal ideation, suicidal ideation Results Laboratory Results: 11/28/18 05:54 11/28/18 05:54 11/28/18 11/28/18 05:54 05:54 WBC 9.8 RBC 4.38 Hgb 13.7 Hct 40.1 MCV 92 MCH 31.4 MCHC 34.2 RDW 13.3 Plt Count 148 L Seg Neutrophils % 84.0 H Lymphocytes % 12.2 L Monocytes % 3.3 Eosinophils % 0.0 Basophils % 0.5 Absolute Neutrophils 8.2 Absolute Lymphocytes 1.2 Absolute Monocytes 0.3 Absolute Eosinophils 0.0 Absolute Basophils 0.0 Sodium 140.5 Potassium 4.2 Chloride 107 Carbon Dioxide 24 Anion Gap 10 BUN 16 Creatinine 0.63 Est GFR ( Amer) > 60 Est GFR (Non-Af Amer) > 60 Glucose 129 H Calcium 9.0 Magnesium 1.7 11/25/18 15:23 Throat Throat Culture - Final NORMAL KETAN 11/25/18 18:02 Troponin I < 0.012 Impressions: Chest X-Ray 11/25/18 17:07 IMPRESSION: NO ACUTE RADIOGRAPHIC FINDING IN THE CHEST. Qualifiers - * PATIENT BEING DISCHARGED WITH ANY OF THE FOLLOWING DIAGNOSIS: No VTE patient discharged on overlapping Therapy?: Yes
[2018-11-28 09:50] VITALS: BP 124/64
[2018-11-28] MEDS ORDERED: LEVOFLOXACIN 750 MG TABLET PO SCH (10:00)
[2018-11-28] MEDS: DOCUSATE SODIUM 100 MG CAPSULE PO SCH (11:16)
[2018-11-28] MEDS: ENOXAPARIN SODIUM INJ 40 MG/0.4 ML DISP.SYRIN SUBCUT SCH (11:16)
[2018-11-28] MEDS: FAMOTIDINE 20 MG TABLET PO SCH (11:17)
[2018-11-28] MEDS ORDERED: METHYLPREDNISOLONE INJ 40 MG/1 ML SDV IV SCH (18:00)
== END 2018-11-28 12:02 | disposition home or self-care (01) | DRG 202 ==
LOC: ER 14:24 → EH 20:36 → 2N 11-26 00:02
PROVIDERS: ADMIT Emergency Medicine; ATTEND Emergency Medicine
PROC: 3E0F73Z Introduction of Anti-inflammatory into Respiratory Tract, Via Natural or Artificial Opening (ICD-10-PCS; principal; 2018-11-25)
DX: J45.901 Unspecified asthma with (acute) exacerbation (principal); J96.01 Acute respiratory failure with hypoxia; R05 Cough; M54.6 Pain in thoracic spine
CPT/HCPCS: 36415; 71046; 80048; 80053; 80069; 83735; 84484; 85025; 85379; 87070; 87880; 90471; 90686; 93005; 93010; 94640; 96365; 96375; 99285; G0008; J1650; J2920; J2930; J3475; J3490; J7030; J7620; S0119

== ENCOUNTER 2019-06-02 12:17 | Observation (INO) | payer OTHER ==
[2019-06-02] MEDS ORDERED: ALBUTEROL SULFATE 0.083% NEB 2.5 MG/3 ML AMPUL NEB ONE ×2 (13:06→14:25)
[2019-06-02] MEDS ORDERED: IPRATROPIUM/ALBUTEROL 0.5-2.5 MG/3 ML AMPUL NEB ONE ×2 (13:11)
[2019-06-02] MEDS ORDERED: METHYLPREDNISOLONE INJ 125 MG/2 ML SDV IV ONE (13:12)
[2019-06-02 13:44] LABS: ABSOLUTE BASOPHILS # (AUTO) 0.1 10^3/uL (0.0-0.2); ABSOLUTE EOSINOPHILS # (AUTO) 1.9 10^3/uL (0.0-0.6); ABSOLUTE LYMPHOCYTES (AUTO) 1.5 10^3/uL (0.5-4.7); ABSOLUTE MONOCYTES (AUTO) 0.4 10^3/uL (0.1-1.4); ABSOLUTE NEUT (AUTO) 5.3 10^3/uL (1.7-8.2); BASOPHILS % (AUTO) 1.1 % (0-2); EOSINOPHILS % (AUTO) 20.3 % (0-6); HEMATOCRIT 45.8 % (37.9-51.0); HEMOGLOBIN 15.5 g/dL (13.5-17.0); LYMPHOCYTES % (AUTO) 16.5 % (13-45); MEAN CORPUSCULAR HEMOGLOBIN 30.4 pg (27.0-33.4); MEAN CORPUSCULAR HGB CONC 33.8 g/dL (32.0-36.0); MEAN CORPUSCULAR VOLUME 90 fl (80-97); MONOCYTES % (AUTO) 4.7 % (3-13); PLATELET COUNT 242 10^3/uL (150-450); RED BLOOD COUNT 5.09 10^6/uL (4.35-5.55); SEGMENTED NEUTROPHILS % (AUTO) 57.4 % (42-78); TOTAL CELLS COUNTED % (AUTO) 100 %; WHITE BLOOD COUNT 9.3 10^3/uL (4.0-10.5)
--- NOTE | 2019-06-02 13:47 | EKG REPORT ---
SEVERITY:- BORDERLINE ECG - SINUS RHYTHM BORDERLINE R WAVE PROGRESSION, ANTERIOR LEADS : Confirmed by: Pratik Barros MD 02-Jun-2019 13:46:48
[2019-06-02 13:49] LABS: ALANINE AMINOTRANSFERASE 24 U/L (21-72); ALBUMIN 4.8 g/dL (3.5-5.0); ALKALINE PHOSPHATASE 60 U/L (38-126); ANION GAP 10 (5-19); ASPARTATE AMINO TRANSFERASE 28 U/L (17-59); BILIRUBIN,DIRECT 0.2 mg/dL (0.0-0.4); BILIRUBIN,TOTAL 1.5 mg/dL (0.2-1.3); BLOOD UREA NITROGEN 14 mg/dL (7-20); CARBON DIOXIDE 24 mmol/L (22-30); CHLORIDE 104 mmol/L (98-107); GLUCOSE 90 mg/dL (75-110); POTASSIUM 4.6 mmol/L (3.6-5.0); TOTAL PROTEIN 7.6 g/dL (6.3-8.2)
--- NOTE | 2019-06-02 14:06 | RADIOLOGY REPORT (SQ) ---
EXAM DESCRIPTION: CHEST SINGLE VIEW COMPLETED DATE/TIME: 06/02/2019 1:22 pm REASON FOR STUDY: sob COMPARISON: 03/13/2019 EXAM PARAMETERS: NUMBER OF VIEWS: One view. TECHNIQUE: Single frontal radiographic view of the chest acquired. RADIATION DOSE: NA LIMITATIONS: None. FINDINGS: LUNGS AND PLEURA: No opacities, masses or pneumothorax. No pleural effusion. MEDIASTINUM AND HILAR STRUCTURES: No masses. Contour normal. HEART AND VASCULAR STRUCTURES: Heart normal in size. Normal vasculature. BONES: No acute findings. HARDWARE: None in the chest. OTHER: No other significant finding. IMPRESSION: No acute abnormality of the lungs in frontal projection. TECHNICAL DOCUMENTATION: JOB ID: [id number] [employer]- All Rights Reserved Reading location - IP/workstation name: [email or web address]
--- NOTE | 2019-06-02 15:38 | ER Document Report ---
Entered by MARCIA WATKINS SCRIBE 06/02/19 [id number] Acting as scribe for:MENDEZ CUBA DO ED General - General Chief Complaint: Asthma Exacerbation Stated Complaint: DIFFICULTY BREATHING Time Seen by Provider: 06/02/19 13:08 Notes: Patient is a 34-year-old male presenting to the emergency department during an asthma attack. 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 states that he has been experiencing problems for 3 days now. states that he has an inhaler, he tried to use it but it does not work. states that he has been coughing up phlegm. patient denies having fever, vomiting, diarrhea, ever having intubation for an asthma episode related episode. Patient states that he has to come to the hospital approximately once a month to be treated for his asthma attacks, has had to be hospitalized for this frequently. Denies any hemoptysis. TRAVEL OUTSIDE OF THE [place] IN LAST 30 DAYS: No - Related Data Allergies/Adverse Reactions: No Known Allergies Allergy (Verified 06/02/19 12:21) Past Medical History - General Information source: Patient - Social History Smoking Status: Never Smoker Chew tobacco use (# tins/day): No Frequency of alcohol use: None Drug Abuse: None Family History: Arthritis Patient has suicidal ideation: No Patient has homicidal ideation: No - Past Medical History Cardiac Medical History: Reports: Hx Pulmonary Embolism - History of a "possible small pulmonary embolism" found in prior records Denies: Hx Coronary Artery Disease, Hx Hypertension Pulmonary Medical History: Reports: Hx Asthma, Hx Bronchitis Denies: Hx Intubation, Hx Tuberculosis Neurological Medical History: Denies: Hx Seizures Endocrine Medical History: Denies: Hx Diabetes Mellitus Type 1, Hx Diabetes Mellitus Type 2 Renal/ Medical History: Denies: Hx Peritoneal Dialysis GI Medical History: Reports: Hx Gastroesophageal Reflux Disease. Denies: Hx Cirrhosis, Hx Hepatitis Musculoskeletal Medical History: Denies Hx Arthritis, Denies Hx Gout Skin Medical History: Denies Hx Eczema, Denies Hx Psoriasis Infectious Medical History: Denies: Hx Hepatitis Review of Systems - Review of Systems Constitutional: See HPI. denies: Fever EENT: No symptoms reported Cardiovascular: No symptoms reported Respiratory: See HPI, Cough. denies: Hemoptysis Gastrointestinal: See HPI. denies: Diarrhea, Vomiting Genitourinary: No symptoms reported Male Genitourinary: No symptoms reported Musculoskeletal: No symptoms reported Skin: No symptoms reported Hematologic/Lymphatic: No symptoms reported Neurological/Psychological: No symptoms reported -: Yes All other systems reviewed and negative Physical Exam - Vital signs Vitals: Temp Pulse Resp BP Pulse Ox 98.1 F 94 24 H 135/79 H 92 06/02/19 12:22 06/02/19 12:22 06/02/19 12:22 06/02/19 12:22 06/02/19 12:22 Interpretation: Tachypneic - Notes Notes: PHYSICAL EXAM GENERAL: Alert, speaks in 3-4 word sentences, mild respiratory distress. HEAD: Normocephalic, atraumatic. EYES: Pupils equal, round, and reactive to light. Extraocular movements intact. ENT: Oral mucosa moist, tongue midline. NECK: Full range of motion. Supple. Trachea midline. LUNGS: Diffuse expiratory wheezing. Prolonged expiratory phase. Mild respiratory distress. No rales, or rhonchi. HEART: Regular rate and rhythm. No murmurs, gallops, or rubs. ABDOMEN: Soft, non-tender. Non-distended. Bowel sounds present in all 4 quadrants. No guarding, rigidity, or rebound. EXTREMITIES: Moves all 4 extremities spontaneously. No edema, radial and dorsalis pedis pulses 2/4 bilaterally. No cyanosis. NEUROLOGICAL: Alert and oriented x3. Normal speech. Biceps and patellar DTRs 2+ bilaterally. PSYCH: Normal affect, normal mood. SKIN: Warm, dry, normal turgor. No rashes or lesions noted. Course - Re-evaluation Re-evalutation: 06/02/19 15:36 Patient immediately started on breathing treatments and Solu-Medrol, placed on 2 L via nasal cannula which resolved his hypoxia of 92%, CBC unremarkable, CMP unremarkable, chest x-ray shows no acute process, EKG is nonischemic. Patient was given 2 DuoNeb's and 7.5 mg of albuterol nebulized with only mild improvement. Patient is currently sleeping but awakens easily. No alteration in mental status. Patient does still have significant wheezing. Discussed patient with Dr. Awad who agrees to admit the patient to his service on the medical floor. - Vital Signs Vital signs: Temp Pulse Resp BP Pulse Ox 98.5 F 94 20 113/75 96 06/02/19 14:00 06/02/19 12:22 06/02/19 14:01 06/02/19 14:00 06/02/19 14:01 - Laboratory Result Diagrams: 06/02/19 13:05 06/02/19 13:05 Laboratory results interpreted by me: 06/02/19 06/02/19 13:05 13:05 Eosinophils % 20.3 H Absolute Eosinophils 1.9 H Total Bilirubin 1.5 H - EKG Interpretation by Me Additional EKG results interpreted by me: 06/02/19 15:37 EKG shows sinus rhythm at a rate of 82, normal axis, normal intervals, no ST segment elevations or depressions, isolated T wave inversions in aVL per my interpretation. Critical Care Note - Critical Care Note Total time excluding time spent on procedures (mins): 40 Discharge - Discharge Clinical Impression: Acute exacerbation of extrinsic asthma Condition: Fair Disposition: ADMITTED INPATIENT Admitting Provider: Delmi (Hospitalist) Unit Admitted: Medical Floor I personally performed the services described in the documentation, reviewed and edited the documentation which was dictated to the scribe in my presence, and it accurately records my words and actions.
--- NOTE | 2019-06-02 16:03 | PDOC H&P ---
History of Present Illness History of Present Illness: ANGELO URENA is a 34 yr old Bahamian-speakingmale with a PMH of asthma who presented with increasing SOB and wheezing. He says he has beenhaving progressive SOB, wheezing and minimally productive cough for the past 3 days. He denies fever or chills. Upon presentation, he was noted to have labored breathing, was tachypneic an diaphoretic and sats at 91%. On encounter, he has bilateral wheezing. He did say he got relief from the breathing treatments and IV steroids and that his SOB has improved. Past Medical History Cardiac Medical History: Reports: Pulmonary Embolism - History of a "possible small pulmonary embolism" found in prior records Denies: Coronary Artery Disease, Hypertension Pulmonary Medical History: Reports: Asthma, Bronchitis Denies: Intubation, Tuberculosis Neurological Medical History: Denies: Seizures Endocrine Medical History: Denies: Diabetes Mellitus Type 1, Diabetes Mellitus Type 2 GI Medical History: Reports: Gastroesophageal Reflux Disease Denies: Cirrhosis, Hepatitis Musculoskeltal Medical History: Denies: Arthritis, Gout Skin Medical History: Denies: Eczema, Psoriasis Hematology: Denies: Anemia, Bleeding Tendencies Social History Smoking Status: Never Smoker Frequency of Alcohol Use: None Hx Recreational Drug Use: Yes Drugs: None Hx Prescription Drug Abuse: No Family History Family History: Arthritis Parental Family History Reviewed: Yes - no premature CAD Children Family History Reviewed: No Sibling(s) Family History Reviewed.: No Medication/Allergy Allergies/Adverse Reactions: No Known Allergies Allergy (Verified 06/02/19 12:21) Physical Exam Vital Signs: Temp Pulse Resp BP Pulse Ox 98.5 F 94 20 113/75 96 06/02/19 14:00 06/02/19 12:22 06/02/19 14:01 06/02/19 14:00 06/02/19 14:01 Intake & Output 06/01/19 06/02/19 06/03/19 06:59 06:59 06:59 Weight 138 lb 3.677 oz General appearance: PRESENT: no acute distress, well-developed, well-nourished Head exam: PRESENT: atraumatic, normocephalic Eye exam: PRESENT: conjunctiva pink, EOMI, PERRLA. ABSENT: scleral icterus Ear exam: PRESENT: normal external ear exam Mouth exam: PRESENT: moist, tongue midline Neck exam: ABSENT: carotid bruit, JVD, lymphadenopathy, thyromegaly Respiratory exam: PRESENT: wheezes. ABSENT: rales, rhonchi Cardiovascular exam: PRESENT: RRR. ABSENT: diastolic murmur, rubs, systolic murmur Pulses: PRESENT: normal dorsalis pedis pul GI/Abdominal exam: PRESENT: normal bowel sounds, soft. ABSENT: distended, guarding, mass, organolmegaly, rebound, tenderness Rectal exam: PRESENT: deferred Extremities exam: PRESENT: full ROM. ABSENT: calf tenderness, clubbing, pedal edema Neurological exam: PRESENT: alert, awake, oriented to person, oriented to place, oriented to time, oriented to situation, CN II-XII grossly intact. ABSENT: motor sensory deficit Results Laboratory Results: 06/02/19 13:05 06/02/19 13:05 06/02/19 06/02/19 13:05 13:05 WBC 9.3 RBC 5.09 Hgb 15.5 Hct 45.8 MCV 90 MCH 30.4 MCHC 33.8 RDW 13.0 Plt Count 242 Seg Neutrophils % 57.4 Lymphocytes % 16.5 Monocytes % 4.7 Eosinophils % 20.3 H Basophils % 1.1 Absolute Neutrophils 5.3 Absolute Lymphocytes 1.5 Absolute Monocytes 0.4 Absolute Eosinophils 1.9 H Absolute Basophils 0.1 Sodium 138.4 Potassium 4.6 Chloride 104 Carbon Dioxide 24 Anion Gap 10 BUN 14 Creatinine 0.87 Est GFR ( Amer) > 60 Est GFR (Non-Af Amer) > 60 Glucose 90 Calcium 10.0 Total Bilirubin 1.5 H AST 28 ALT 24 Alkaline Phosphatase 60 Total Protein 7.6 Albumin 4.8 Impressions: Chest X-Ray 06/02/19 13:05 IMPRESSION: No acute abnormality of the lungs in frontal projection. Assessment and Plan - Diagnosis (1) Acute respiratory failure with hypoxia Is this a current diagnosis for this admission?: Yes Plan: Secondary to asthma exacerbation. Saturating well on nasal cannula. (2) Asthma exacerbation Qualifiers: Asthma severity: moderate Asthma persistence: unspecified Qualified Code(s): J45.901 - Unspecified asthma with (acute) exacerbation Is this a current diagnosis for this admission?: Yes Plan: Start scheduled breathing treatments. Solumdrol 40 mg IV q8h. - Time Time Spent with patient: 25-34 minutes
[2019-06-02] MEDS: NORMAL SALINE 1000 ML 1,000 ML IV PRN ×2 (16:08→17:56)
[2019-06-02] MEDS: IPRATROPIUM/ALBUTEROL 0.5-2.5 MG/3 ML AMPUL NEB SCH ×3 (16:22→23:34)
[2019-06-02] MEDS: METHYLPREDNISOLONE INJ 40 MG/1 ML SDV IV SCH (22:42)
[2019-06-02] MEDS: HEPARIN SOD (PORCINE) 5,000 UNIT/ML 1 ML VIAL SUBCUT SCH (22:43)
[2019-06-03] MEDS: IPRATROPIUM/ALBUTEROL 0.5-2.5 MG/3 ML AMPUL NEB SCH ×6 (03:51→23:55)
[2019-06-03] MEDS: METHYLPREDNISOLONE INJ 40 MG/1 ML SDV IV SCH ×3 (06:28→21:17)
--- NOTE | 2019-06-03 11:56 | PDOC PROGRESS REPORT ---
Subjective Progress Note for:: 06/03/19 Subjective:: This is a 34 yr old Hebrew-speaking male with a PMH of asthma who presented with increasing SOB and wheezing. He was admitted for severe asthma exacerbation. No acute event overnight. This morning, he appears more comfortable. Communication is done through the [employer] system. He says his shortness of breath has improved. It is definitely not at his baseline yet he still has significant bilateral wheezing. He has had prior episodes of severe asthma exacerbation and apparently is only using albuterol inhalers at home. Reason For Visit: ASTHMA EXCERBATION Physical Exam Vital Signs: Temp Pulse Resp BP Pulse Ox 97.9 F 98 18 116/65 99 06/03/19 08:00 06/03/19 08:00 06/03/19 08:00 06/03/19 08:00 06/03/19 08:00 Intake & Output 06/02/19 06/03/19 06/04/19 06:59 06:59 06:59 Intake Total 1000 1000 Balance 1000 1000 Weight 140 lb 6.951 oz General appearance: PRESENT: no acute distress, well-developed, well-nourished Head exam: PRESENT: atraumatic, normocephalic Eye exam: PRESENT: conjunctiva pink, EOMI, PERRLA. ABSENT: scleral icterus Ear exam: PRESENT: normal external ear exam Mouth exam: PRESENT: moist, tongue midline Neck exam: ABSENT: carotid bruit, JVD, lymphadenopathy, thyromegaly Respiratory exam: PRESENT: wheezes. ABSENT: rales, rhonchi Cardiovascular exam: PRESENT: RRR. ABSENT: diastolic murmur, rubs, systolic murmur Pulses: PRESENT: normal dorsalis pedis pul Vascular exam: PRESENT: normal capillary refill GI/Abdominal exam: PRESENT: normal bowel sounds, soft. ABSENT: distended, guarding, mass, organolmegaly, rebound, tenderness Rectal exam: PRESENT: deferred Extremities exam: PRESENT: full ROM. ABSENT: calf tenderness, clubbing, pedal edema Neurological exam: PRESENT: alert, awake, oriented to person, oriented to place, oriented to time, oriented to situation, CN II-XII grossly intact. ABSENT: motor sensory deficit Results Laboratory Results: 06/02/19 13:05 06/02/19 13:05 07/19/19 07/19/19 13:05 13:05 WBC 9.3 RBC 5.09 Hgb 15.5 Hct 45.8 MCV 90 MCH 30.4 MCHC 33.8 RDW 13.0 Plt Count 242 Seg Neutrophils % 57.4 Lymphocytes % 16.5 Monocytes % 4.7 Eosinophils % 20.3 H Basophils % 1.1 Absolute Neutrophils 5.3 Absolute Lymphocytes 1.5 Absolute Monocytes 0.4 Absolute Eosinophils 1.9 H Absolute Basophils 0.1 Sodium 138.4 Potassium 4.6 Chloride 104 Carbon Dioxide 24 Anion Gap 10 BUN 14 Creatinine 0.87 Est GFR ( Amer) > 60 Est GFR (Non-Af Amer) > 60 Glucose 90 Calcium 10.0 Total Bilirubin 1.5 H AST 28 ALT 24 Alkaline Phosphatase 60 Total Protein 7.6 Albumin 4.8 Impressions: Chest X-Ray 06/02/19 13:05 IMPRESSION: No acute abnormality of the lungs in frontal projection. Assessment and Plan - Diagnosis (1) Acute respiratory failure with hypoxia Is this a current diagnosis for this admission?: Yes Plan: Secondary to asthma exacerbation. Saturating well on nasal cannula. (2) Asthma exacerbation Qualifiers: Asthma severity: moderate Asthma persistence: unspecified Qualified Code(s): J45.901 - Unspecified asthma with (acute) exacerbation Is this a current diagnosis for this admission?: Yes Plan: Slightly improved. He continues to have bilateral wheezes. Continue IV steroids and scheduled breathing treatments for now. - Time Time Spent with patient: 15-24 minutes
[2019-06-03] MEDS: HEPARIN SOD (PORCINE) 5,000 UNIT/ML 1 ML VIAL SUBCUT SCH ×2 (12:37→21:17)
[2019-06-03] MEDS ORDERED: DILTIAZEM HCL 60 MG TABLET ONE (21:33)
[2019-06-03] MEDS ORDERED: DILTIAZEM HCL 60 MG TABLET PO ONE (22:15)
[2019-06-04] MEDS: IPRATROPIUM/ALBUTEROL 0.5-2.5 MG/3 ML AMPUL NEB SCH ×2 (04:01→08:34)
[2019-06-04] MEDS: METHYLPREDNISOLONE INJ 40 MG/1 ML SDV IV SCH ×3 (05:40→21:09)
[2019-06-04] MEDS: HEPARIN SOD (PORCINE) 5,000 UNIT/ML 1 ML VIAL SUBCUT SCH ×2 (10:09→21:08)
--- NOTE | 2019-06-04 13:52 | PDOC PROGRESS REPORT ---
Subjective Progress Note for:: 06/04/19 Subjective:: This is a 34 yr old Yakut-speaking male with a PMH of asthma who presented with increasing SOB and wheezing. He was admitted for severe asthma exacerbation. 06/03: This morning, he appears more comfortable. Communication is done through the [employer] system. He says his shortness of breath has improved. It is definitely not at his baseline yet he still has significant bilateral wheezing. He has had prior episodes of severe asthma exacerbation and apparently is only using albuterol inhalers at home. 06/04: No acute event overnight. He says his shortness of breath continued to improve but he is not at his baseline yet. He continues to have bilateral wheezing albeit slightly improved from yesterday. He is tachycardic in the 120s. Reason For Visit: ASTHMA EXCERBATION Physical Exam Vital Signs: Temp Pulse Resp BP Pulse Ox 97.8 F 128 H 20 130/69 H 97 06/04/19 12:00 06/04/19 12:00 06/04/19 12:00 06/04/19 12:00 06/04/19 12:00 Intake & Output 06/03/19 06/04/19 06/05/19 06:59 06:59 06:59 Intake Total 1000 5782 450 Balance 1000 5782 450 Weight 140 lb 6.951 oz 140 lb 14.006 oz General appearance: PRESENT: no acute distress, well-developed, well-nourished Head exam: PRESENT: atraumatic, normocephalic Eye exam: PRESENT: conjunctiva pink, EOMI, PERRLA. ABSENT: scleral icterus Ear exam: PRESENT: normal external ear exam Mouth exam: PRESENT: moist, tongue midline Neck exam: ABSENT: carotid bruit, JVD, lymphadenopathy, thyromegaly Respiratory exam: PRESENT: rhonchi, wheezes. ABSENT: rales Cardiovascular exam: PRESENT: RRR. ABSENT: diastolic murmur, rubs, systolic murmur Pulses: PRESENT: normal dorsalis pedis pul GI/Abdominal exam: PRESENT: normal bowel sounds, soft. ABSENT: distended, guarding, mass, organolmegaly, rebound, tenderness Rectal exam: PRESENT: deferred Extremities exam: PRESENT: full ROM. ABSENT: calf tenderness, clubbing, pedal edema Neurological exam: PRESENT: alert, awake, oriented to person, oriented to place, oriented to time, oriented to situation, CN II-XII grossly intact. ABSENT: motor sensory deficit Results Laboratory Results: 06/02/19 13:05 06/02/19 13:05 06/04/19 08:32 TSH 0.35 L Impressions: Chest X-Ray 06/02/19 13:05 IMPRESSION: No acute abnormality of the lungs in frontal projection. Assessment and Plan - Diagnosis (1) Acute respiratory failure with hypoxia Is this a current diagnosis for this admission?: Yes Plan: Secondary to asthma exacerbation. Saturating well on nasal cannula. (2) Asthma exacerbation Qualifiers: Asthma severity: moderate Asthma persistence: unspecified Qualified Code(s): J45.901 - Unspecified asthma with (acute) exacerbation Is this a current diagnosis for this admission?: Yes Plan: 06/03: Slightly improved. He continues to have bilateral wheezes. Continue IV steroids and scheduled breathing treatments for now. 06/04: Continue IV steroids. Switch DuoNeb to albuterol.
[2019-06-04] MEDS: ALBUTEROL SULFATE 0.083% NEB 2.5 MG/3 ML AMPUL NEB SCH ×2 (13:55→20:45)
[2019-06-04 14:34] LABS: FREE T3 3.21 pg/mL (2.77-5.27); FREE T4 (FREE THYROXINE) 1.06 ng/dL (0.78-2.19)
[2019-06-05] MEDS: ALBUTEROL SULFATE 0.083% NEB 2.5 MG/3 ML AMPUL NEB SCH ×3 (01:33→13:34)
[2019-06-05] MEDS: METHYLPREDNISOLONE INJ 40 MG/1 ML SDV IV SCH ×2 (06:06→13:43)
[2019-06-05] MEDS: HEPARIN SOD (PORCINE) 5,000 UNIT/ML 1 ML VIAL SUBCUT SCH (10:09)
--- NOTE | 2019-06-05 15:55 | PDOC DISCHARGE SUMMARY ---
General - Admit/Disc Date/PCP Admission Date/Primary Care Provider: 06/02/19 16:54 Discharge Date: 06/05/19 - Discharge Diagnosis (1) Acute respiratory failure with hypoxia Is this a current diagnosis for this admission?: Yes (2) Asthma exacerbation Is this a current diagnosis for this admission?: Yes - Additional Information Discharge Diet: Full Liquids Prescriptions: Albuterol Sulfate [Ventolin 0.083% Neb 2.5 mg/3 mL Ampul] 2.5 mg NEB Q6HP PRN #30 vial.neb PRN Reason: Budesonide/Formoterol Fumarate [Symbicort Hfa 160-4.5 Mcg Inhaler 6 gm] 2 puff IH Q12 #1 inhaler Prednisone [Deltasone 20 mg Tablet] 20 mg PO BID 5 Days #10 tablet Home Medications: Cetirizine HCl [Zyrtec 10 mg Tablet] 10 mg PO DAILY 06/02/19 Albuterol Sulfate [Proair HFA Inhalation Aerosol 8.5 gm MDI] 2 puff IH Q4HP PRN 06/03/19 Albuterol Sulfate [Ventolin 0.083% Neb 2.5 mg/3 mL Ampul] 2.5 mg NEB Q6HP PRN #30 vial.neb 06/05/19 Budesonide/Formoterol Fumarate [Symbicort Hfa 160-4.5 Mcg Inhaler 6 gm] 2 puff IH Q12 #1 inhaler 06/05/19 Prednisone [Deltasone 20 mg Tablet] 20 mg PO BID 5 Days #10 tablet 06/05/19 History of Present Illness History of Present Illness: ANGELO URENA is a 34 yr old Gabonese-speakingmale with a PMH of asthma who presented with increasing SOB and wheezing. He says he has beenhaving progressive SOB, wheezing and minimally productive cough for the past 3 days. He denies fever or chills. Upon presentation, he was noted to have labored breathing, was tachypneic an diaphoretic and sats at 91%. On encounter, he has bilateral wheezing. He did say he got relief from the breathing treatments and IV steroids and that his SOB has improved. Hospital Course Hospital Course: This is a 34 yr old Gabonese-speaking male with a PMH of asthma who presented with increasing SOB and wheezing. He was admitted for severe asthma exacerbation. He was started on IV steroids and scheduled breathing treatments. He did slowly but gradually improved. He is not optimized on his asthma meds. He says that he gets asthma attacks every 1 to 2 months but only uses albuterol as needed inhalers at home. He was eventually weaned off O2 and ambulated the hallways on room air with no desaturation or acute issues. He will be started on Symbicort. He will also be discharged on a short course of prednisone and will be given prescription for breathing treatments at home. Physical Exam Vital Signs: Temp Pulse Resp BP Pulse Ox 98.8 F 94 16 125/70 98 06/05/19 07:25 06/05/19 07:55 06/05/19 07:55 06/05/19 07:25 06/05/19 07:55 Intake & Output 06/04/19 06/05/19 06/06/19 06:59 06:59 06:59 Intake Total 5782 1850 Balance 5782 1850 Weight 140 lb 14.006 oz 140 lb 14.006 oz General appearance: PRESENT: no acute distress, well-developed, well-nourished Head exam: PRESENT: atraumatic, normocephalic Eye exam: PRESENT: conjunctiva pink, EOMI, PERRLA. ABSENT: scleral icterus Ear exam: PRESENT: normal external ear exam Mouth exam: PRESENT: moist, tongue midline Neck exam: ABSENT: carotid bruit, JVD, lymphadenopathy, thyromegaly Respiratory exam: PRESENT: wheezes - minimal wheezes. ABSENT: rales, rhonchi Cardiovascular exam: PRESENT: RRR. ABSENT: diastolic murmur, rubs, systolic murmur Pulses: PRESENT: normal dorsalis pedis pul GI/Abdominal exam: PRESENT: normal bowel sounds, soft. ABSENT: distended, guarding, mass, organolmegaly, rebound, tenderness Rectal exam: PRESENT: deferred Neurological exam: PRESENT: alert, awake, oriented to person, oriented to place, oriented to time, oriented to situation, CN II-XII grossly intact. ABSENT: motor sensory deficit Results Laboratory Results: 06/02/19 13:05 06/02/19 13:05 06/04/19 08:32 Free T4 1.06 Free T3 pg/mL 3.21 Impressions: Chest X-Ray 06/02/19 13:05 IMPRESSION: No acute abnormality of the lungs in frontal projection. Qualifiers - * PATIENT BEING DISCHARGED WITH ANY OF THE FOLLOWING DIAGNOSIS: No Acute Heart Failure - Is this a Heart Failure Patient?: No LVEF < 40%?: No- if no continue to question #3 3. Anticoagulant therapy for permanect/persistent/paraoxysmal Afib or Aflutter: N/A
[2019-06-05 17:45] VITALS: BP 128/71
== END 2019-06-05 18:20 | disposition home or self-care (01) ==
LOC: ER 12:17 → INTOOBSV 16:54 → EH 16:54 → 4N 20:06
PROVIDERS: ADMIT Internal Medicine; ATTEND Internal Medicine
DX: J96.01 Acute respiratory failure with hypoxia (principal); J45.901 Unspecified asthma with (acute) exacerbation; Z79.899 Other long term (current) drug therapy; Z86.79 Personal history of other diseases of the circulatory system
CPT/HCPCS: 93005; 94640 ×6; 99291; 96374; 36415 ×2; 84439; 84443; 85025; 80053; 84481; 85379; 71045; 93010; G0378 ×5; J1644; J2920 ×4; J2930; J3490 ×4; J7030; J7620 ×3